=== PATIENT | female | born 1955 | race Caucasian/White ===

== ENCOUNTER 2016-09-07 16:46 | Inpatient (IN) | payer MEDICARE, OTHER ==
[2016-09-07] MEDS ORDERED: LORAZEPAM 2 MG/ML VIAL IV ONE ×3 (16:55→18:52)
--- NOTE | 2016-09-07 16:56 | EDPRACDOC ---
- General Information Stated Complaint: RESP Time Seen by Provider: 09/07/16 16:47 Information Source: Patient, [employer] Mode Of Arrival: Ambulance Home Medications: Home Medications Albuterol Sulfate 2.5 mg IH Q6H PRN 02/21/13 Albuterol Sulfate [Proair Hfa] 1 - 2 puff INH Q4H PRN 02/21/13 Aspirin (Enteric Coated) [Halfprin] 81 mg PO DAILY 02/21/13 Cyclobenzaprine HCl [Flexeril] 10 mg PO TID 02/21/13 Duloxetine HCl [Cymbalta] 60 mg PO DAILY 02/21/13 Fluticasone/Salmeterol [Advair 250-50 Diskus] 1 each IH BID 02/21/13 Levocetirizine Dihydrochloride [Xyzal] 5 mg PO DAILY 02/21/13 Metformin HCl [Glucophage] 1,000 mg PO BID 02/21/13 Montelukast Sodium [Singulair] 10 mg PO DAILY 02/21/13 Multivitamin [Multiple Vitamins] 1 tab PO DAILY 02/21/13 Pregabalin [Lyrica] 150 mg PO BID 02/21/13 Tiotropium [place] [Spiriva] 18 mcg IH DAILY 02/21/13 Fluconazole [Diflucan] 200 mg PO DAILY #7 tab 02/27/13 Insulin Glargine [Lantus Pen] 50 units SQ 0800,2000 #5 pen 02/27/13 Amlodipine [Norvasc] 5 mg PO DAILY 09/07/16 Atorvastatin Calcium [Lipitor] 20 mg PO DAILY 09/07/16 Cefdinir [Omnicef] 300 mg PO .BID X 10D 09/07/16 Furosemide [Lasix] 40 mg PO BID 09/07/16 Hydrocodone Bit/Acetaminophen [[place] 7.5-325 Tablet] 1 tab PO TID 09/07/16 Insulin Lispro [Humalog] 0 units SQ DIR 09/07/16 Levothyroxine [Synthroid, Levoxyl] 112 mcg PO DAILY 09/07/16 Morphine Sulfate 30 mg PO BID 09/07/16 Morphine Sulfate/Naltrexone [Embeda ER 20-0.8 mg Capsule] 1 cap PO BID 09/07/16 Nabumetone 750 mg PO DAILY 09/07/16 Naloxone HCl [Narcan] 4 mg NS DIR 09/07/16 [place]-3 Fatty Acids/Fish Oil [Fish Oil 1,000 mg Softgel] 1 cap PO BID 09/07/16 Potassium Chloride [Klor-Con M20] 20 meq PO DAILY 09/07/16 Allergies/Adverse Reactions: Allergies Allergy/AdvReac Type Severity Reaction Status Date / Time Penicillins Allergy Unknown Verified 09/07/16 16:49 aspirin AdvReac Mild See Verified 09/07/16 16:49 [From Aspirin Regimen Comments Rebecca/Calcium] calcium carbonate AdvReac Mild ITICHING Verified 09/07/16 16:49 [From Aspirin Regimen Rebecca/Calcium] ibuprofen [From Motrin] AdvReac ITICHING Verified 09/07/16 16:49 Sulfa (Sulfonamide AdvReac Itching Verified 09/07/16 16:49 Antibiotics) - History of Present Illness HPI: PT PRESENTS WITH SEVERE DYSPNEA PROGRESSIVE OVER THE LAST FEW DAYS. Relevant History: Reports: COPD ED Past Medical History - History Reviewed Yes Nurses notes reviewed and agree except as marked - Patient Medical History Cardiac History: Reports: Hypertension Respiratory History: Reports: COPD, Pneumonia () Psychological History: Reports: Depression, Anxiety (xanax) Systemic History: Denies: Cancer - Family Medical History Reports: Hypertension (mother and father, bro, sis), Diabetes (mother and father , bro, sis), Cancer (GM of lung CA) - Social Medical History Lives In: Home EDM Review of Systems - Review of Systems ROS Unobtainable: Yes Review of systems cannot be obtained due to the patient's medical condition Constitutional: Fatigue, Weakness Respiratory: Cough, Shortness of Breath, Wheezing - Physical Exam Constitutional: Alert, Distress Last recorded Vital Signs: Oxygen Pulse Oxygen Saturation O2 Device Oxygen Flow Rate Fraction of Inspired Oxygen ( FIO2) Exam: PT SEVERELY DYSPNEIC AND IN DISTRESS. FEW WORD DYSPNEA UPON ARRIVAL. - HEENT Head: negative: Deformity, Laceration Eye Exam: negative: Conjunctival Injection, Pale Conjunctiva Oropharynx: Membranes Dry (TACKY) Nose: negative: Congestion, Discharge Neck: negative: Limited ROM - Respiratory/Cardiovascular Respiratory: Accessory Muscle Use, Diminished, Tachypnea, Wheezes Cardiovascular: Tachycardia - Musculoskeletal Extremities: Pedal Edema (2+ BILATERAL), Pedal Pulse (PALPABLE) - Integumentary Skin: Warm - Neurologic Motor Function: Normal Mood Description: Anxious Thought: Coherent ED SOB MDM - Re-evaluation Re-evaluation 1 Re-evaluation Time: 20:46 Re-evaluation: PT HOLDING SATS WELL BUT REMAINS TACHYPNEIC. WILL OBTAIN SECOND ABG TO ASSESS NEED FOR INTUBATION. - Results Result Diagrams: 09/07/16 16:50 09/09/16 05:30 ED Critical Care Note - Critical Care Note Total Time (mins): 30 Comments: Due to the presence of and / or the risk of deterioration, my attendance to this patient required critical care time, including assessment/reassessment, documentation, ordering and interpreting ancillary studies, discussion with ED staff and consultants,patient and family, and excludes time spent on separately billable procedures. - Departure Yes I personally saw and evaluated the patient. Disposition: Admit IP To This Hospital Condition: Stable Final Diagnosis: Hypertensive urgency, COPD with exacerbation Altered mental status Qualifiers: Altered mental status type: unspecified Qualified Code(s): R41.82 - Altered mental status, unspecified Decision to Admit Time: 19:00 Decision to admit date: 09/09/16 Decision to admit: from ED
[2016-09-07] MEDS ORDERED: LABETALOL 20 MG/4 ML SYRINGE IV STA ×2 (16:59→19:47)
[2016-09-07] MEDS ORDERED: FUROSEMIDE 40 MG/4 ML VIAL IV ONE (17:02)
[2016-09-07 17:13] LABS: AUTOMATED BASOPHIL 0.6 % (0-2); AUTOMATED MONOCYTE 8.2 % (3-10); AUTOMATED NEUTROPHIL 80.2 % (45-76); MPV 8.4 fL (7.4-10.4)
[2016-09-07 17:21] LABS: ALLEN'S TEST PASS; BEb -5.2 (+/- 2); TCO2 21.1 MMOL/L (23-27)
[2016-09-07 17:22] LABS: ABG Draw Site Right Radial; ABG Draw Tech SI; MODE BIPAP 14/6 RATE
[2016-09-07 17:27] LABS: BLOOD UREA NITROGEN 20 MG/DL (7-17); CALCIUM 8.7 MG/DL (8.4-10.2); CALCULATED OSMOLALITY 292 MOs/Kg (270-290); CHLORIDE 108 mEq/L (98-107); GLUCOSE 245 MG/DL (70-99); SODIUM LEVEL 146 mEq/L (137-146); TOTAL PROTEIN 7.8 G/DL (6.3-8.2)
[2016-09-07 17:28] LABS: PARTIAL THROMB. TIME 27.4 SEC (22-35); PT-INR 1.1
[2016-09-07 17:59] LABS: CPK TOTAL WITH POSSIBLE MB 472 IU/L (30-134)
--- NOTE | 2016-09-07 18:02 | DIRPT ---
CLINICAL DATA: Dyspnea EXAM: PORTABLE CHEST 1 VIEW COMPARISON: None. FINDINGS: Moderate cardiomegaly. Normal vascularity. Lungs are grossly clear. No pneumothorax. IMPRESSION: Cardiomegaly without decompensation Electronically Signed By: Nick Clemente M.D. On: 09/07/2016 17:59
[2016-09-07 18:07] LABS: AMORPHOUS 1+; LEUKOCYTES/URINE NEG (NEGATIVE); NITRITE/URINE NEG (NEGATIVE); RBC/URINE 0-2 (0-5); URINE OCCULT BLOOD 2+ (NEG/TRACE); WBC/URINE 0-2 (0-5)
[2016-09-07] MEDS ORDERED: NITROGLYCERINE 2 % OINTMENT PACK TOP ONE (19:01)
[2016-09-07] MEDS ORDERED: ONDANSETRON HCL 4 MG/2 ML VIAL IV PRN (19:05)
[2016-09-07] MEDS ORDERED: OXYCODONE HCL 5 MG TABLET PO PRN (19:05)
[2016-09-07] MEDS ORDERED: ALBUTEROL 0.083% 3 ML NEB NEB PRN (19:06)
[2016-09-07] MEDS ORDERED: GLUCAGON 1 MG VIAL SQ PRN (19:06)
[2016-09-07] MEDS ORDERED: DEXTROSE 25 GM/50 ML PFS IV PRN (19:06)
[2016-09-07] MEDS ORDERED: GLUCOSE (ORAL GEL) 15 GM TUBE PO PRN (19:06)
[2016-09-07] MEDS ORDERED: METHYLPREDNISOLONE 125 MG/2 ML VIAL IV ONE (19:06)
--- NOTE | 2016-09-07 19:13 | HISTPHYS ---
- Chief Complaint Severe dyspnea - History of Present Illness This is a 61-year-old female who was on as needed oxygen at home for history of COPD, as well as multiple medications for hypertension and diabetes mellitus. She was brought in by family this evening, due to progressive dyspnea and altered mental status. Patient's and daughter are at the bedside, patient's tells me that she has been in her usual state of health, though he did notice that this morning she was a little bit more lethargic than usual. She normally uses oxygen as needed, but the family feels that she does not use it as often as she should. In any case, he also noted that while he normally leaves out her nighttime insulin dosages for her, he noticed this morning that she seems to not have taken her insulin last night. He went to work this morning about 8:00 a.m., and when their daughter came to see her about 2 o'clock, she was very short of breath, dyspneic and seem to be a little bit confused. She did not complain of any chest pain, fevers or chills or have a significantly worsened cough than usual. No diarrhea, nausea or vomiting. She was brought to the emergency department where she continued to have significant dyspnea and was placed on BiPAP, she currently is in some respiratory distress but apparently improved when she was given IV Ativan. She has also required several doses of IV labetalol to improve her hypertension. - Medical History Cardiac History: Reports: Hypertension Respiratory History: Reports: COPD, Pneumonia () Systemic History: Denies: Cancer Psychological History: Reports: Depression, Anxiety (xanax) - Medictions/Allergies Allergies Penicillins Allergy (Verified 09/07/16 16:49) Unknown aspirin [From Aspirin Regimen Rebecca/Calcium] Adverse Reaction (Mild, Verified 16:49) See Comments "the uncoated kind messes my stomach up" calcium carbonate [From Aspirin Regimen Rebecca/Calcium] Adverse Reaction (Mild, Verified 09/07/16 16:49) ITICHING CAN'T TAKE 325MG ibuprofen [From Motrin] Adverse Reaction (Verified 09/07/16 16:49) ITICHING Sulfa (Sulfonamide Antibiotics) Adverse Reaction (Verified 09/07/16 16:49) Itching Home Medications Albuterol Sulfate 2.5 mg IH Q6H PRN 02/21/13 Albuterol Sulfate [Proair Hfa] 1 - 2 puff INH Q4H PRN 02/21/13 Aspirin (Enteric Coated) [Halfprin] 81 mg PO DAILY 02/21/13 Cyclobenzaprine HCl [Flexeril] 10 mg PO TID 02/21/13 Duloxetine HCl [Cymbalta] 60 mg PO DAILY 02/21/13 Fluticasone/Salmeterol [Advair 250-50 Diskus] 1 each IH BID 02/21/13 Levocetirizine Dihydrochloride [Xyzal] 5 mg PO DAILY 02/21/13 Metformin HCl [Glucophage] 1,000 mg PO BID 02/21/13 Montelukast Sodium [Singulair] 10 mg PO DAILY 02/21/13 Multivitamin [Multiple Vitamins] 1 tab PO DAILY 02/21/13 Pregabalin [Lyrica] 150 mg PO BID 02/21/13 Tiotropium [place] [Spiriva] 18 mcg IH DAILY 02/21/13 Fluconazole [Diflucan] 200 mg PO DAILY #7 tab 02/27/13 Insulin Glargine [Lantus Pen] 50 units SQ 0800,2000 #5 pen 02/27/13 Amlodipine [Norvasc] 5 mg PO DAILY 09/07/16 Atorvastatin Calcium [Lipitor] 20 mg PO DAILY 09/07/16 Cefdinir [Omnicef] 300 mg PO .BID X 10D 09/07/16 Furosemide [Lasix] 40 mg PO BID 09/07/16 Hydrocodone Bit/Acetaminophen [[place] 7.5-325 Tablet] 1 tab PO TID 09/07/16 Insulin Lispro [Humalog] 0 units SQ DIR 09/07/16 Levothyroxine [Synthroid, Levoxyl] 112 mcg PO DAILY 09/07/16 Morphine Sulfate 30 mg PO BID 09/07/16 Morphine Sulfate/Naltrexone [[place]eda ER 20-0.8 mg Capsule] 1 cap PO BID 09/07/16 Nabumetone 750 mg PO DAILY 09/07/16 Naloxone HCl [Narcan] 4 mg NS DIR 09/07/16 [place]-3 Fatty Acids/Fish Oil [Fish Oil 1,000 mg Softgel] 1 cap PO BID 09/07/16 Potassium Chloride [Klor-Con M20] 20 meq PO DAILY 09/07/16 - Family History Reports: Hypertension (mother and father, bro, sis), Diabetes (mother and father , bro, sis), Cancer (GM of lung CA) - Social History Travel Outside of [place] in the Last 3 Months?: No - Review of Systems Yes All systems reviewed and were negative except as marked (And as mentioned in the history of present illness above.) Yes Review of systems cannot be obtained due to the patient's medical condition (Given by patient's and daughter at the bedside.) - Physical Exam Vital Signs: Initial Vitals Pulse Rate 135 H 09/07/16 16:49 Respiratory Rate 52 H 09/07/16 16:49 Pulse Oxygen Saturation 95 09/07/16 16:49 Constitutional: Distress Oriented to: Person, Not Oriented Exam: Obese female appearing her stated age in obvious respiratory distress. Keeps repeating okay. - HEENT Head: Normal (normocephalic,atraumatic, trachea midline) Eye: Normal (EOMI, Sclera white) Oropharynx: Normal (moist) Nose: No Symptoms Reported (without discharge or bleeding) Respiratory: Accessory Muscle Use, Diminished, Rales, Retractions, Rhonchi, Tachypnea, Wheezes, Excursion Cardiovascular: Tachycardia - GI Palpation: Normal (soft, non distended and nontender) - Musculoskeletal Extremities: Normal (normal tone, no cyanosis or edema) - Integumentary Skin: Normal (no rashes or lesions) - Neurologic Cranial Nerve: Normal (CN II-XII intact) Mood Description: Normal (Fully oriented and appropiate affect) - Focused CV Perfusion Exam Vital Signs: Last Vital Signs Temp Pulse 95 09/07/16 18:53 Resp 26 H 09/07/16 18:53 BP 185/82 H 09/07/16 18:53 Pulse Ox 95 09/07/16 18:53 - Lab Results Laboratory Tests 09/07/16 09/07/16 09/07/16 16:50 16:50 16:50 WBC 10.5 Hgb 16.0 Plt Count 242 INR 1.1 pH pCO2 pO2 Potassium 4.1 Chloride 108 H BUN 20 H Creatinine 0.90 Lactic Acid AST 103 H ALT 57 H Alkaline Phosphatase 164 09/07/16 09/07/16 16:50 17:18 WBC Hgb Plt Count INR pH 7.340 L pCO2 37.0 pO2 97.0 Potassium Chloride BUN Creatinine Lactic Acid 1.8 AST ALT Alkaline Phosphatase - Diagnostic Findings Chest x-ray: Moderate cardiomegaly. Normal vascularity. Lungs are grossly clear. No pneumothorax. - Assessment (1) Hypertensive urgency I16.0 - HYPERTENSIVE URGENCY Acute With systolic blood pressure rising to the 180s, associated with altered mental status and shortness of breath. I am concerned that she could be converting into flash pulmonary edema, though her chest x-ray is unremarkable for this. She has received several doses of IV labetalol, it seems from the family's history that she may have not taken her medications in the last 24 hours and this may explain her significant hypertension. As such, will resume her home antihypertensive medications. Given the combined shortness of breath with her hypertension, will also start a 0.5 inch of nitropaste. (2) Altered mental status R41.82 - ALTERED MENTAL STATUS, UNSPECIFIED Acute Unclear etiology, blood gas was obtained appropriately, CO2 is not elevated. Altered mental status may be related to her hypertensive urgency. Would obtain CT of the head once her respiratory status is improved, if her mental status is not improved. (3) DMII (diabetes mellitus, type 2) E11.9 - TYPE 2 DIABETES MELLITUS WITHOUT COMPLICATIONS Acute She is on metformin as well as scheduled insulin at home. Check hemoglobin A1c, and add sliding scale insulin q.a.c. and HS. Will also check urine microalbumin and give her diabetic diet when eating. Diabetic teaching has been ordered Q shift. (4) COPD with exacerbation J44.1 - CHRONIC OBSTRUCTIVE PULMONARY DISEASE W (ACUTE) EXACERBATION Acute Hypoxia, tachypnea, wheezing and rhonchi. Chest x-ray is unremarkable. Will treat COPD exacerbation with scheduled IV steroid taper, as well as empiric IV antibiotics Rocephin and azithromycin. Will also add scheduled bronchodilators and anticholinergics, as well as p.r.n. albuterol. Respiratory therapy has been consulted. Due to her significant tachypnea, I am concerned that she may need to be intubated, however her other respiratory markers are not significantly concerning. There certainly could be a component of anxiety, so will be treating this initially. Discussed with nursing staff that they will follow up with me if her tachypnea does not improve. (5) Hypothyroidism E03.9 - HYPOTHYROIDISM, UNSPECIFIED Acute Continue home Synthroid, check tsh. - Plan In summary this patient is acutely and critically ill. The patient requires treatment of vital organ failure and measures to prevent further life- threatening deterioration especially due to her altered mental status and significant tachypnea with retractions, accessary muscle use. I have explained to her family at the bedside that I am concerned about her respiratory status, and that she may need to be intubated this evening. I personally reviewed and ordered lab testing, as well as imaging. I reviewed old medical records from previous hospitalizations as available, and spent the time mentioned below in critical care of this patient including counseling and coordination of care. Total Time: 96
[2016-09-07] MEDS ORDERED: GLARGINE INSULIN (LANTUS) 100 UNITS/ML PEN SQ SCH (20:00)
[2016-09-07] MEDS: CEFTRIAXONE 1 GM in D5W 100 ML IV SCH (20:09)
[2016-09-07 20:54] LABS: ALLEN'S TEST PASS; BEb -2.2 (+/- 2); TCO2 25.1 MMOL/L (23-27)
[2016-09-07 20:55] LABS: ABG Draw Site Left Radial; MODE BIPAP 14/6 RATE
[2016-09-07] MEDS ORDERED: Non-Formulary Medication ITEM (Pregabalin [Lyrica] 150 MG) PO SCH (21:00)
[2016-09-07] MEDS: Albuterol/Ipratropium Neb 3 ML NEB NEB SCH (21:04)
[2016-09-07] MEDS: AZITHROMYCIN 500 MG in D5W 250 ML IV SCH (21:43)
[2016-09-07] MEDS: ENOXAPARIN 40 MG/0.4 ML PFS SQ SCH (21:43)
[2016-09-07] MEDS: GLARGINE INSULIN (LANTUS) 100 UNITS/ML PEN SQ SCH (21:44)
[2016-09-07] MEDS: REGULAR INSULIN 100 UNITS/ML - 3 ML VIAL SQ SCH (21:50)
[2016-09-07] MEDS: CYCLOBENZAPRINE 10 MG TAB PO SCH (21:51)
[2016-09-07] MEDS ORDERED: NS 1,000 ML IV ONE (22:53)
[2016-09-07] MEDS: MORPHINE 30 MG IMMED REL TAB PO SCH (23:02)
[2016-09-07] MEDS: PREGABALIN 50 MG CAP PO SCH (23:02)
[2016-09-07] MEDS ORDERED: IBUPROFEN INTRAVENOUS 800 MG in NS 250 ML IV PRN (23:58)
[2016-09-07] MEDS ORDERED: DIPHENHYDRAMINE 50 MG/ML VIAL IV PRN (23:58)
[2016-09-08] MEDS: 1/2NS 1,000 ML IV SCH ×2 (00:35→20:41)
[2016-09-08] MEDS ORDERED: Vaccine Screening Complete SCH (01:00)
[2016-09-08] MEDS: Albuterol/Ipratropium Neb 3 ML NEB NEB SCH ×4 (02:46→20:20)
[2016-09-08] MEDS: METHYLPREDNISOLONE 125 MG/2 ML VIAL IV SCH ×4 (02:53→20:47)
[2016-09-08 05:14] LABS: ALLEN'S TEST PASS; BEb -3.2 (+/- 2)
[2016-09-08 05:26] LABS: ABG Draw Site Right Radial; BI-PAP 14/6 cm H2O
[2016-09-08] MEDS: CYCLOBENZAPRINE 10 MG TAB PO SCH ×3 (05:41→20:47)
[2016-09-08] MEDS: MetFORMIN 1000 MG IMMED REL TAB PO SCH ×2 (05:42→17:19)
[2016-09-08] MEDS: LEVOTHYROXINE 112 MCG (0.112 MG) TAB PO SCH (05:42)
[2016-09-08] MEDS: REGULAR INSULIN 100 UNITS/ML - 3 ML VIAL SQ SCH ×4 (05:49→20:48)
[2016-09-08 06:30] LABS: CALC CORRECTED 9.1 MG/DL (8.4-10.2); CALCIUM 8.3 MG/DL (8.4-10.2); CREATININE 1.3 MG/DL (0.52-1.04); TOTAL PROTEIN 6.2 G/DL (6.3-8.2)
[2016-09-08] MEDS: NABUMETONE 500 MG TAB PO SCH (07:37)
[2016-09-08] MEDS: DULOXETINE 60 MG CAPSULE PO SCH (07:37)
[2016-09-08] MEDS: ATORVASTATIN 20 MG TAB PO SCH (07:38)
[2016-09-08] MEDS: MORPHINE 30 MG IMMED REL TAB PO SCH ×2 (07:38→20:54)
[2016-09-08] MEDS: PREGABALIN 50 MG CAP PO SCH ×2 (07:38→20:50)
[2016-09-08] MEDS: AMLODIPINE 5 MG TAB PO SCH (07:38)
[2016-09-08] MEDS: POTASSIUM CHLORIDE 20 MEQ TAB PO SCH (07:38)
[2016-09-08] MEDS: CETIRIZINE HCL 10 MG TAB PO SCH (07:39)
[2016-09-08] MEDS: MONTELUKAST SODIUM 10 MG TAB PO SCH (07:39)
--- NOTE | 2016-09-08 08:28 | GENMEDPROG ---
Chief Complaint: Still very short of breath wearing BiPAP Notes Reviewed: Yes Events from last night noted and discussed with Clinical Staff Current Medication List: Reviewed DVT Prophylaxis: Yes - Physical Examination Vital Signs and I&O: Last Vital Signs Temp 99.0 F 09/08/16 07:00 Pulse 85 09/08/16 08:00 Resp 28 H 09/08/16 07:00 BP 120/60 09/08/16 08:00 Pulse Ox 96 09/08/16 08:00 Oxygen Pulse Oxygen Saturation 96 O2 Device BiPAP Oxygen Flow Rate Fraction of Inspired Oxygen ( 45 FIO2) Intake & Output 09/05/16 09/06/16 09/07/16 09/08/16 23:59 23:59 23:59 23:59 Intake Total 350 733 Output Total 1200 Balance -850 733 Patient's weight 74.797 kg General: Alert, Oriented x3, No acute distress, Well appearing, Well nourished HEENT: Normal (Normocephalic, atraumatic;EOMI.Sclera white, Nares patent, without discharge or bleeding. No oropharyngeal lesions or erythema. Mucous membranes are dry.) Neck: Non-tender, Normal Trachea alignment, Normal inspection (No cervical lymphadenopathy. No supraclavicular lymphadenopathy.), No Masses palpable, Limited range of motion, Supple Lymphatics: Normal (No lymph node swelling or pain.) Respiratory: Accessory Muscle Use, Diminished, Tachypnea, Wheezes Cardiovascular: Regular rate and rhythm (No bradycardia or tachycardia), Normal S1, No Gallops,Rubs/Murmurs, Normal S2, Good Pedal Pulses (DP pulses 2+ bilaterally) GI: Normal bowel sounds (normal active sounds), Soft (non-distended), Non tender , No hepatospenomegaly, No masses Extremities/Musculoskeletal: Normal pulses (DP pulses 2+ bilaterally) Skin: Warm,Dry and Intact, No rashes, No significant lesion Neurological: Strength at 5/5 X4 ext (Motor 5/5 throughout.), Normal tone, Cranial nerves 3-12 NL ( 2-12 grossly intact.) Psych/Mental Status: Appropriate, Normal Affect Lab/DI/Studies Reviewed: 09/07/16 16:50 09/08/16 05:30 Laboratory Results - last 24 hr 09/07/16 09/07/16 09/07/16 16:50 16:50 16:50 WBC 10.5 RBC 5.91 H Hgb 16.0 Hct 48.7 H MCV 82 MCH 27.1 MCHC 32.8 L RDW 17.6 H Plt Count 242 MPV 8.4 Neut % (Auto) 80.2 H Lymph % (Auto) 11.0 L [place] % (Auto) 8.2 Eos % (Auto) 0.0 Baso % (Auto) 0.6 Absolute Neuts (auto) 8.40 H Absolute Lymphs (auto) 1.16 PT 11.1 INR 1.1 APTT 27.4 Puncture Site pH pCO2 pO2 HCO3 Total CO2 Base Excess Vent Mode FiO2 % Mode BiPAP Specimen Drawn By Sodium 146 Potassium 4.1 Chloride 108 H Carbon Dioxide 21 L Anion Gap 21 H BUN 20 H Creatinine 0.90 Estimated GFR (MDRD) > 60 Glucose 245 H POC Capillary Glucose Hemoglobin A1c Calculated Osmolality 292 H Lactic Acid Calcium 8.7 Corrected Calcium Total Bilirubin 0.6 AST 103 H ALT 57 H Alkaline Phosphatase 164 Creatine Kinase 472 H CK-MB (CK-2) 3.0 Troponin I 0.16 [id number]-R-Oqxovziuhcs Pept 2790 H Total Protein 7.8 Albumin 4.0 Urine Color Urine Clarity Urine pH Ur Specific [place] Urine Protein Urine Glucose (UA) Urine Ketones Urine Occult Blood Urine Nitrite Urine Bilirubin Urine Urobilinogen Ur Leukocyte Esterase Urine RBC Urine WBC Ur Epithelial Cells Amorphous Sediment Urine Bacteria 09/07/16 09/07/16 09/07/16 16:50 16:50 17:18 WBC RBC Hgb Hct MCV MCH MCHC RDW Plt Count MPV Neut % (Auto) Lymph % (Auto) [place] % (Auto) Eos % (Auto) Baso % (Auto) Absolute Neuts (auto) Absolute Lymphs (auto) PT INR APTT Puncture Site Right radial pH 7.340 L pCO2 37.0 pO2 97.0 HCO3 20.0 L Total CO2 21.1 L Base Excess -5.2 L Vent Mode Bipap 14/6 FiO2 % 45% Mode BiPAP Specimen Drawn By Si Sodium Potassium Chloride Carbon Dioxide Anion Gap BUN Creatinine Estimated GFR (MDRD) Glucose POC Capillary Glucose Hemoglobin A1c 10.4 H Calculated Osmolality Lactic Acid 1.8 Calcium Corrected Calcium Total Bilirubin AST ALT Alkaline Phosphatase Creatine Kinase CK-MB (CK-2) Troponin I [id number] Pept Total Protein Albumin Urine Color Urine Clarity Urine pH Ur Specific [place] Urine Protein Urine Glucose (UA) Urine Ketones Urine Occult Blood Urine Nitrite Urine Bilirubin Urine Urobilinogen Ur Leukocyte Esterase Urine RBC Urine WBC Ur Epithelial Cells Amorphous Sediment Urine Bacteria 09/07/16 09/07/16 09/07/16 17:34 20:26 20:45 WBC RBC Hgb Hct MCV MCH MCHC RDW Plt Count MPV Neut % (Auto) Lymph % (Auto) [place] % (Auto) Eos % (Auto) Baso % (Auto) Absolute Neuts (auto) Absolute Lymphs (auto) PT INR APTT Puncture Site Left radial pH 7.340 L pCO2 44.0 pO2 81.0 HCO3 23.7 Total CO2 25.1 Base Excess -2.2 L Vent Mode Bipap 14/6 FiO2 % 45% Mode BiPAP Specimen Drawn By Stana Sodium Potassium Chloride Carbon Dioxide Anion Gap BUN Creatinine Estimated GFR (MDRD) Glucose POC Capillary Glucose Hemoglobin A1c Calculated Osmolality Lactic Acid Calcium Corrected Calcium Total Bilirubin AST ALT Alkaline Phosphatase Creatine Kinase CK-MB (CK-2) Troponin I 0.17 Qhr-I-Rqdjnkrnouj Pept Total Protein Albumin Urine Color Yellow Urine Clarity Cldy Urine pH 6.0 Ur Specific [place] 1.010 Urine Protein 2+ H Urine Glucose (UA) 3+ H Urine Ketones 1+ H Urine Occult Blood 2+ H Urine Nitrite Neg Urine Bilirubin Neg Urine Urobilinogen <2.0 Ur Leukocyte Esterase Neg Urine RBC 0-2 Urine WBC 0-2 Ur Epithelial Cells Occ Amorphous Sediment 1+ Urine Bacteria Few 09/07/16 09/07/16 09/08/16 21:46 23:20 05:05 WBC RBC Hgb Hct MCV MCH MCHC RDW Plt Count MPV Neut % (Auto) Lymph % (Auto) [place] % (Auto) Eos % (Auto) Baso % (Auto) Absolute Neuts (auto) Absolute Lymphs (auto) PT INR APTT Puncture Site Right radial pH 7.330 L pCO2 43.0 pO2 91.0 HCO3 22.7 Total CO2 24.0 Base Excess -3.2 L Vent Mode FiO2 % 45 Mode BiPAP 14/6 Specimen Drawn By Stana Sodium Potassium Chloride Carbon Dioxide Anion Gap BUN Creatinine Estimated GFR (MDRD) Glucose POC Capillary Glucose 255 H Hemoglobin A1c Calculated Osmolality Lactic Acid Calcium Corrected Calcium Total Bilirubin AST ALT Alkaline Phosphatase Creatine Kinase CK-MB (CK-2) Troponin I 0.15 [id number]-Cqtjnihnoap Pept Total Protein Albumin Urine Color Urine Clarity Urine pH Ur Specific [place] Urine Protein Urine Glucose (UA) Urine Ketones Urine Occult Blood Urine Nitrite Urine Bilirubin Urine Urobilinogen Ur Leukocyte Esterase Urine RBC Urine WBC Ur Epithelial Cells Amorphous Sediment Urine Bacteria 09/08/16 09/08/16 05:30 05:46 WBC RBC Hgb Hct MCV MCH MCHC RDW Plt Count MPV Neut % (Auto) Lymph % (Auto) [place] % (Auto) Eos % (Auto) Baso % (Auto) Absolute Neuts (auto) Absolute Lymphs (auto) PT INR APTT Puncture Site pH pCO2 pO2 HCO3 Total CO2 Base Excess Vent Mode FiO2 % Mode BiPAP Specimen Drawn By Sodium 145 Potassium 4.3 Chloride 108 H Carbon Dioxide 23 Anion Gap 18 H BUN 37 H Creatinine 1.30 H Estimated GFR (MDRD) 41 L Glucose 341 H POC Capillary Glucose 339 H Hemoglobin A1c Calculated Osmolality 301 H Lactic Acid Calcium 8.3 L Corrected Calcium 9.1 Total Bilirubin 0.5 AST 99 H ALT 62 H Alkaline Phosphatase 127 Creatine Kinase CK-MB (CK-2) Troponin I Euw-A-Wjwqlvrxpaj Pept Total Protein 6.2 L Albumin 3.2 L Urine Color Urine Clarity Urine pH Ur Specific [place] Urine Protein Urine Glucose (UA) Urine Ketones Urine Occult Blood Urine Nitrite Urine Bilirubin Urine Urobilinogen Ur Leukocyte Esterase Urine RBC Urine WBC Ur Epithelial Cells Amorphous Sediment Urine Bacteria - Assessment (1) Respiratory failure with hypercapnia Acute J96.92 - RESPIRATORY FAILURE, UNSPECIFIED WITH HYPERCAPNIA Qualifiers: Chronicity: acute on chronic Qualified Code(s): J96.22 - Acute and chronic respiratory failure with hypercapnia Comment/Plan: Requiring continues BiPAP for acute respiratory failure. (2) COPD with exacerbation Acute J44.1 - CHRONIC OBSTRUCTIVE PULMONARY DISEASE W (ACUTE) EXACERBATION Comment/Plan: Hypoxia, tachypnea, wheezing and rhonchi. Chest x-ray is unremarkable. Will treat COPD exacerbation with scheduled IV steroid taper, as well as empiric IV antibiotics Rocephin and azithromycin. Patient is also getting scheduled bronchodilators and anticholinergics, as well as p.r.n. albuterol. Respiratory therapy has been consulted. Due to her significant tachypnea, I am concerned that she may need to be intubated, however her other respiratory markers are not significantly concerning. There certainly could be a component of anxiety, so will be treating this initially. Discussed with nursing staff that they will follow up with me if her tachypnea does not improve. (3) DMII (diabetes mellitus, type 2) Chronic E11.9 - TYPE 2 DIABETES MELLITUS WITHOUT COMPLICATIONS Qualifiers: Diabetes mellitus complication status: with kidney complications Diabetes mellitus complication detail: with chronic kidney disease Diabetes mellitus group home insulin use: with group home use Chronic kidney disease stage: stage 1 Qualified Code(s): E11.22 - Type 2 diabetes mellitus with diabetic chronic kidney disease; N18.1 - Chronic kidney disease, stage 1; Z79.4 - FDC ( current) use of insulin Comment/Plan: She is on metformin as well as scheduled insulin at home. Hemoglobin A1c shows poor control the level 10.4. She is on sliding scale insulin q.a.c. and HS. urine microalbumin pending and will be given her diabetic diet when eating. Diabetic teaching has been ordered Q shift. (4) Hypothyroidism Chronic E03.9 - HYPOTHYROIDISM, UNSPECIFIED Qualifiers: Hypothyroidism type: acquired Qualified Code(s): E03.9 - Hypothyroidism, unspecified Comment/Plan: Continue home Synthroid, check tsh. Additional Notes: Due to the presence of and / or the risk of deterioration, my attendance to this patient required critical care time, including assessment/reassessment, documentation, ordering and interpreting ancillary studies, discussion with staff and consultants,patient and family, and excludes time spent on separately billable procedures. This individual is critically ill and in danger of dying. Case Care Discussed with: Patient, Nursing Staff, Resource Management Education/Counseling Given To: Patient Education/Counseling Given Regarding: Diagnosis, Treatment Total Time: 41 min Critical Care: Yes Code: 291
[2016-09-08] MEDS: GLARGINE INSULIN (LANTUS) 100 UNITS/ML PEN SQ SCH ×2 (08:52→20:44)
[2016-09-08] MEDS ORDERED: FLUCONAZOLE 100 MG TAB PO SCH (09:00)
[2016-09-08] MEDS ORDERED: METOPROLOL TARTRATE 25 MG TAB PO SCH (09:00)
[2016-09-08] MEDS ORDERED: LEVOCETIRIZINE DIHYDROCHLORIDE 5 MG PO SCH (09:00)
[2016-09-08] MEDS ORDERED: NABUMETONE 750 MG PO SCH (09:00)
[2016-09-08] MEDS ORDERED: Non-Formulary Medication ITEM (Tiotropium Bromide [Spiriva] 18 MCG) IH SCH (09:00)
[2016-09-08] MEDS: PROBIOTIC BLEND TAB PO SCH ×2 (10:49→17:19)
[2016-09-08] MEDS: VITAMINS, MULTIPLE CAP PO SCH (10:50)
[2016-09-08] MEDS: METOPROLOL 5 MG/5 ML SDV IV SCH ×2 (11:05→17:18)
[2016-09-08] MEDS ORDERED: MORPHINE 2 MG/ML INJECTION IV PRN (12:29)
[2016-09-08] MEDS: ENOXAPARIN 40 MG/0.4 ML PFS SQ SCH (17:18)
[2016-09-08] MEDS: CEFTRIAXONE 1 GM in D5W 100 ML IV SCH (20:42)
[2016-09-08] MEDS: AZITHROMYCIN 500 MG in D5W 250 ML IV SCH (20:43)
[2016-09-08] MEDS: CHLORHEXIDINE (HIBICLENS) 4 OZ BOTTLE TOP SCH (20:58)
[2016-09-09] MEDS: 1/2NS 1,000 ML IV SCH ×2 (00:43→19:03)
[2016-09-09] MEDS: METOPROLOL 5 MG/5 ML SDV IV SCH ×4 (00:43→17:02)
[2016-09-09] MEDS: METHYLPREDNISOLONE 125 MG/2 ML VIAL IV SCH ×4 (01:40→20:13)
[2016-09-09] MEDS: Albuterol/Ipratropium Neb 3 ML NEB NEB SCH ×4 (02:28→19:09)
[2016-09-09] MEDS: LEVOTHYROXINE 112 MCG (0.112 MG) TAB PO SCH (05:34)
[2016-09-09] MEDS: CYCLOBENZAPRINE 10 MG TAB PO SCH ×3 (05:34→20:17)
[2016-09-09] MEDS: MetFORMIN 1000 MG IMMED REL TAB PO SCH ×2 (05:35→17:05)
[2016-09-09] MEDS: REGULAR INSULIN 100 UNITS/ML - 3 ML VIAL SQ SCH ×4 (05:35→20:19)
[2016-09-09 06:27] LABS: BLOOD UREA NITROGEN 50 MG/DL (7-17); CALC CORRECTED 9.5 MG/DL (8.4-10.2); CALCIUM 8.2 MG/DL (8.4-10.2); CALCULATED OSMOLALITY 292 MOs/Kg (270-290); CHLORIDE 106 mEq/L (98-107); GLUCOSE 276 MG/DL (70-99); SODIUM LEVEL 140 mEq/L (137-146); TOTAL PROTEIN 5.4 G/DL (6.3-8.2)
--- NOTE | 2016-09-09 07:47 | GENMEDPROG ---
Notes Reviewed: Yes Events from last night noted and discussed with Clinical Staff Current Medication List: Reviewed DVT Prophylaxis: Yes - Physical Examination Vital Signs and I&O: Last Vital Signs Temp 97.8 F 09/09/16 07:00 Pulse 81 09/09/16 07:00 Resp 28 H 09/09/16 07:00 BP 107/54 L 09/09/16 07:00 Pulse Ox 95 09/09/16 07:00 Oxygen Pulse Oxygen Saturation 95 O2 Device BiPAP Oxygen Flow Rate 4 Fraction of Inspired Oxygen ( 40 FIO2) Intake & Output 09/06/16 09/07/16 09/08/16 09/09/16 23:59 23:59 23:59 23:59 Intake Total 350 1249 868 Output Total 1200 875 275 Balance -850 374 593 Patient's weight 74.797 kg 74.979 kg General: Alert, Oriented x3, No acute distress, Well appearing, Well nourished HEENT: Normal (Normocephalic, atraumatic;EOMI.Sclera white, Nares patent, without discharge or bleeding. No oropharyngeal lesions or erythema. Mucous membranes are dry.) Neck: Non-tender, Normal Trachea alignment, Normal inspection (No cervical lymphadenopathy. No supraclavicular lymphadenopathy.), No Masses palpable, Limited range of motion, Supple Lymphatics: Normal (No lymph node swelling or pain.) Respiratory: Accessory Muscle Use, Diminished, Tachypnea, Wheezes Cardiovascular: Regular rate and rhythm (No bradycardia or tachycardia), Normal S1, No Gallops,Rubs/Murmurs, Normal S2, Good Pedal Pulses (DP pulses 2+ bilaterally) GI: Normal bowel sounds (normal active sounds), Soft (non-distended), Non tender , No hepatospenomegaly, No masses Extremities/Musculoskeletal: Normal pulses (DP pulses 2+ bilaterally) Skin: Warm,Dry and Intact, No rashes, No significant lesion Neurological: Strength at 5/5 X4 ext (Motor 5/5 throughout.), Normal tone, Cranial nerves 3-12 NL ( 2-12 grossly intact.) Psych/Mental Status: Appropriate, Normal Affect Lab/DI/Studies Reviewed: 09/07/16 16:50 09/09/16 05:30 Laboratory Results - last 24 hr 09/08/16 09/08/16 09/08/16 10:30 16:45 20:42 Sodium Potassium Chloride Carbon Dioxide Anion Gap BUN Creatinine Estimated GFR (MDRD) Glucose POC Capillary Glucose 279 H 274 H 275 H Calculated Osmolality Calcium Corrected Calcium Total Bilirubin AST ALT Alkaline Phosphatase Total Protein Albumin 09/09/16 09/09/16 05:27 05:30 Sodium 140 Potassium 4.1 Chloride 106 Carbon Dioxide 24 Anion Gap 14 BUN 50 H Creatinine 1.30 H Estimated GFR (MDRD) 41 L Glucose 276 H POC Capillary Glucose 264 H Calculated Osmolality 292 H Calcium 8.2 L Corrected Calcium 9.5 Total Bilirubin 0.3 AST 64 H ALT 75 H Alkaline Phosphatase 110 Total Protein 5.4 L Albumin 2.7 L - Assessment (1) Respiratory failure with hypercapnia Acute J96.92 - RESPIRATORY FAILURE, UNSPECIFIED WITH HYPERCAPNIA Qualifiers: Chronicity: acute on chronic Qualified Code(s): J96.22 - Acute and chronic respiratory failure with hypercapnia Comment/Plan: Requiring intermittent BiPAP for acute respiratory failure. Still tachypneic this morning. (2) COPD with exacerbation Acute J44.1 - CHRONIC OBSTRUCTIVE PULMONARY DISEASE W (ACUTE) EXACERBATION Comment/Plan: IV Solu-Medrol Rocephin Zithromax nebulizer therapy and intermittent BiPAP. 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 Hemoglobin A1c shows poor control the level 10.4. She is on sliding scale insulin q.a.c. and HS. urine microalbumin pending and will be given her diabetic diet when eating. Diabetic teaching has been ordered Q shift. (4) Hypothyroidism Chronic E03.9 - HYPOTHYROIDISM, UNSPECIFIED Qualifiers: Hypothyroidism type: acquired Qualified Code(s): E03.9 - Hypothyroidism, unspecified Comment/Plan: Continue home Synthroid, check tsh. Case Care Discussed with: Patient, Nursing Staff, Resource Management Education/Counseling Given To: Patient Education/Counseling Given Regarding: Diagnosis, Treatment Total Time: 38 minutes Critical Care: No Code: 16592 (12+)
[2016-09-09] MEDS ORDERED: FLU VACCINE (Afluria) 0.5 ML DOSE IM ONE (08:00)
[2016-09-09] MEDS: GLARGINE INSULIN (LANTUS) 100 UNITS/ML PEN SQ SCH ×2 (08:34→20:09)
[2016-09-09] MEDS: NABUMETONE 500 MG TAB PO SCH (08:36)
[2016-09-09] MEDS: ATORVASTATIN 20 MG TAB PO SCH (08:37)
[2016-09-09] MEDS: PREGABALIN 50 MG CAP PO SCH ×2 (08:38→20:23)
[2016-09-09] MEDS: POTASSIUM CHLORIDE 20 MEQ TAB PO SCH (08:38)
[2016-09-09] MEDS: DULOXETINE 60 MG CAPSULE PO SCH (08:38)
[2016-09-09] MEDS: MONTELUKAST SODIUM 10 MG TAB PO SCH (08:39)
[2016-09-09] MEDS: MORPHINE 30 MG IMMED REL TAB PO SCH ×2 (08:39→22:05)
[2016-09-09] MEDS: CETIRIZINE HCL 10 MG TAB PO SCH (08:39)
[2016-09-09] MEDS: AMLODIPINE 5 MG TAB PO SCH (08:39)
[2016-09-09] MEDS: VITAMINS, MULTIPLE CAP PO SCH (12:31)
[2016-09-09] MEDS: PROBIOTIC BLEND TAB PO SCH ×2 (12:31→17:05)
[2016-09-09] MEDS: REGULAR INSULIN 100 UNITS/ML - 3 ML VIAL IV PRN ×8 (14:47→23:27)
[2016-09-09] MEDS: ENOXAPARIN 40 MG/0.4 ML PFS SQ SCH (17:06)
[2016-09-09] MEDS: CEFTRIAXONE 1 GM in D5W 100 ML IV SCH (20:16)
[2016-09-09] MEDS: AZITHROMYCIN 500 MG in D5W 250 ML IV SCH (20:18)
[2016-09-09] MEDS: CHLORHEXIDINE (HIBICLENS) 4 OZ BOTTLE TOP SCH (20:19)
[2016-09-10] MEDS: METOPROLOL 5 MG/5 ML SDV IV SCH ×2 (01:28→05:40)
[2016-09-10] MEDS: 1/2NS 1,000 ML IV SCH ×3 (01:28→23:23)
[2016-09-10] MEDS: METHYLPREDNISOLONE 125 MG/2 ML VIAL IV SCH ×2 (01:31→07:46)
[2016-09-10] MEDS: Albuterol/Ipratropium Neb 3 ML NEB NEB SCH ×4 (01:50→19:47)
[2016-09-10] MEDS: REGULAR INSULIN 100 UNITS/ML - 3 ML VIAL IV PRN ×2 (02:55→06:09)
[2016-09-10] MEDS: CYCLOBENZAPRINE 10 MG TAB PO SCH ×3 (05:40→21:35)
[2016-09-10] MEDS: LEVOTHYROXINE 112 MCG (0.112 MG) TAB PO SCH (05:41)
[2016-09-10] MEDS: MetFORMIN 1000 MG IMMED REL TAB PO SCH ×2 (05:42→17:37)
[2016-09-10] MEDS: REGULAR INSULIN 100 UNITS/ML - 3 ML VIAL SQ SCH ×4 (06:10→21:23)
[2016-09-10 06:12] LABS: BLOOD UREA NITROGEN 52 MG/DL (7-17); CALC CORRECTED 9.6 MG/DL (8.4-10.2); CALCIUM 8.4 MG/DL (8.4-10.2); CALCULATED OSMOLALITY 277 MOs/Kg (270-290); CHLORIDE 99 mEq/L (98-107); GLUCOSE 243 MG/DL (70-99); SODIUM LEVEL 132 mEq/L (137-146); TOTAL PROTEIN 5.5 G/DL (6.3-8.2)
[2016-09-10 06:24] LABS: MPV 8.5 fL (7.4-10.4)
[2016-09-10 07:37] LABS: SEG NEUTROPHIL 88 % (45-76)
[2016-09-10] MEDS: PREGABALIN 50 MG CAP PO SCH ×2 (07:42→21:35)
[2016-09-10] MEDS: MORPHINE 30 MG IMMED REL TAB PO SCH ×2 (07:43→21:35)
[2016-09-10] MEDS: POTASSIUM CHLORIDE 20 MEQ TAB PO SCH (07:43)
[2016-09-10] MEDS: NABUMETONE 500 MG TAB PO SCH (07:44)
[2016-09-10] MEDS: DULOXETINE 60 MG CAPSULE PO SCH (07:44)
[2016-09-10] MEDS: MONTELUKAST SODIUM 10 MG TAB PO SCH (07:45)
[2016-09-10] MEDS: AMLODIPINE 5 MG TAB PO SCH (07:45)
[2016-09-10] MEDS: CETIRIZINE HCL 10 MG TAB PO SCH (07:45)
[2016-09-10] MEDS: ATORVASTATIN 20 MG TAB PO SCH (07:45)
[2016-09-10] MEDS: GLARGINE INSULIN (LANTUS) 100 UNITS/ML PEN SQ SCH ×2 (07:58→19:55)
--- NOTE | 2016-09-10 08:31 | GENMEDPROG ---
Chief Complaint: less sob feeling stronger Notes Reviewed: Yes Events from last night noted and discussed with Clinical Staff Current Medication List: Reviewed DVT Prophylaxis: Yes - Physical Examination Vital Signs and I&O: Last Vital Signs Temp 97.7 F 09/10/16 07:00 Pulse 79 09/10/16 07:00 Resp 10 09/10/16 04:00 BP 105/54 L 09/10/16 07:00 Pulse Ox 98 09/10/16 07:25 Oxygen Pulse Oxygen Saturation 98 O2 Device Nasal Cannula Oxygen Flow Rate 3 Fraction of Inspired Oxygen ( 40 FIO2) Intake & Output 09/07/16 09/08/16 09/09/16 09/10/16 23:59 23:59 23:59 23:59 Intake Total 350 1249 1792 301 Output Total 1200 875 425 150 Balance -926 645 5066 151 Patient's weight 74.797 kg 74.979 kg 78.562 kg General: Alert, Oriented x3, No acute distress, Well appearing, Well nourished HEENT: Normal (Normocephalic, atraumatic;EOMI.Sclera white, Nares patent, without discharge or bleeding. No oropharyngeal lesions or erythema. Mucous membranes are dry.) Neck: Non-tender, Full range of motion, Normal Trachea alignment, Normal inspection (No cervical lymphadenopathy. No supraclavicular lymphadenopathy.), No Masses palpable, Supple Lymphatics: Normal (No lymph node swelling or pain.) Respiratory: Accessory Muscle Use, Diminished, Tachypnea, Wheezes Cardiovascular: Regular rate and rhythm (No bradycardia or tachycardia), Normal S1, No Gallops,Rubs/Murmurs, Normal S2, Good Pedal Pulses (DP pulses 2+ bilaterally) GI: Normal bowel sounds Extremities/Musculoskeletal: Normal pulses (DP pulses 2+ bilaterally) Skin: Warm,Dry and Intact, No rashes, No significant lesion Neurological: Normal speech, Strength at 5/5 X4 ext, Normal tone, Cranial nerves 3-12 NL Psych/Mental Status: Appropriate, Normal Affect Lab/DI/Studies Reviewed: 09/10/16 05:35 09/10/16 05:35 Laboratory Results - last 24 hr 09/07/16 09/09/16 09/09/16 17:34 12:14 14:20 WBC RBC Hgb Hct MCV MCH MCHC RDW Plt Count MPV Neut % (Auto) Lymph % (Auto) [place] % (Auto) Eos % (Auto) Baso % (Auto) Absolute Neuts (auto) Absolute Lymphs (auto) Seg Neuts % (Manual) Band Neutrophils % Lymphocytes % (Manual) Monocytes % (Manual) Absolute Neutrophils Absolute Lymphocytes Platelet Estimate RBC Morphology Sodium Potassium Chloride Carbon Dioxide Anion Gap BUN Creatinine Estimated GFR (MDRD) Glucose POC Capillary Glucose 335 H 269 H Calculated Osmolality Calcium Corrected Calcium Total Bilirubin AST ALT Alkaline Phosphatase Total Protein Albumin Ur Random Microalbumin 634.8 09/09/16 09/09/16 09/09/16 15:15 16:29 18:45 WBC RBC Hgb Hct MCV MCH MCHC RDW Plt Count MPV Neut % (Auto) Lymph % (Auto) [place] % (Auto) Eos % (Auto) Baso % (Auto) Absolute Neuts (auto) Absolute Lymphs (auto) Seg Neuts % (Manual) Band Neutrophils % Lymphocytes % (Manual) Monocytes % (Manual) Absolute Neutrophils Absolute Lymphocytes Platelet Estimate RBC Morphology Sodium Potassium Chloride Carbon Dioxide Anion Gap BUN Creatinine Estimated GFR (MDRD) Glucose POC Capillary Glucose 249 H 207 H 235 H Calculated Osmolality Calcium Corrected Calcium Total Bilirubin AST ALT Alkaline Phosphatase Total Protein Albumin Ur Random Microalbumin 09/09/16 09/09/16 09/09/16 20:01 21:07 22:10 WBC RBC Hgb Hct MCV MCH MCHC RDW Plt Count MPV Neut % (Auto) Lymph % (Auto) [place] % (Auto) Eos % (Auto) Baso % (Auto) Absolute Neuts (auto) Absolute Lymphs (auto) Seg Neuts % (Manual) Band Neutrophils % Lymphocytes % (Manual) Monocytes % (Manual) Absolute Neutrophils Absolute Lymphocytes Platelet Estimate RBC Morphology Sodium Potassium Chloride Carbon Dioxide Anion Gap BUN Creatinine Estimated GFR (MDRD) Glucose POC Capillary Glucose 232 H 266 H 242 H Calculated Osmolality Calcium Corrected Calcium Total Bilirubin AST ALT Alkaline Phosphatase Total Protein Albumin Ur Random Microalbumin 09/09/16 09/10/16 09/10/16 23:10 00:54 02:55 WBC RBC Hgb Hct MCV MCH MCHC RDW Plt Count MPV Neut % (Auto) Lymph % (Auto) [place] % (Auto) Eos % (Auto) Baso % (Auto) Absolute Neuts (auto) Absolute Lymphs (auto) Seg Neuts % (Manual) Band Neutrophils % Lymphocytes % (Manual) Monocytes % (Manual) Absolute Neutrophils Absolute Lymphocytes Platelet Estimate RBC Morphology Sodium Potassium Chloride Carbon Dioxide Anion Gap BUN Creatinine Estimated GFR (MDRD) Glucose POC Capillary Glucose 274 H 261 H 242 H Calculated Osmolality Calcium Corrected Calcium Total Bilirubin AST ALT Alkaline Phosphatase Total Protein Albumin Ur Random Microalbumin 09/10/16 09/10/16 09/10/16 04:57 05:35 05:35 WBC 8.4 RBC 5.03 Hgb 13.7 D Hct 41.6 MCV 83 MCH 27.2 MCHC 32.8 L RDW 17.5 H Plt Count 161 MPV 8.5 Neut % (Auto) Cancelled Lymph % (Auto) Cancelled [place] % (Auto) Cancelled Eos % (Auto) Cancelled Baso % (Auto) Cancelled Absolute Neuts (auto) Cancelled Absolute Lymphs (auto) Cancelled Seg Neuts % (Manual) 88 H Band Neutrophils % 5 Lymphocytes % (Manual) 6 L Monocytes % (Manual) 1 Absolute Neutrophils 7.81 Absolute Lymphocytes 0.50 L Platelet Estimate Norm RBC Morphology 1+ aniso Sodium 132 L D Potassium 4.3 Chloride 99 Carbon Dioxide 20 L Anion Gap 17 H BUN 52 H Creatinine 1.30 H Estimated GFR (MDRD) 41 L Glucose 243 H POC Capillary Glucose 248 H Calculated Osmolality 277 Calcium 8.4 Corrected Calcium 9.6 Total Bilirubin 0.4 AST 38 H ALT 57 H Alkaline Phosphatase 101 Total Protein 5.5 L Albumin 2.8 L Ur Random Microalbumin 09/10/16 09/10/16 06:01 07:50 WBC RBC Hgb Hct MCV MCH MCHC RDW Plt Count MPV Neut % (Auto) Lymph % (Auto) [place] % (Auto) Eos % (Auto) Baso % (Auto) Absolute Neuts (auto) Absolute Lymphs (auto) Seg Neuts % (Manual) Band Neutrophils % Lymphocytes % (Manual) Monocytes % (Manual) Absolute Neutrophils Absolute Lymphocytes Platelet Estimate RBC Morphology Sodium Potassium Chloride Carbon Dioxide Anion Gap BUN Creatinine Estimated GFR (MDRD) Glucose POC Capillary Glucose 240 H 194 H Calculated Osmolality Calcium Corrected Calcium Total Bilirubin AST ALT Alkaline Phosphatase Total Protein Albumin Ur Random Microalbumin - Assessment (1) Respiratory failure with hypercapnia Acute J96.92 - RESPIRATORY FAILURE, UNSPECIFIED WITH HYPERCAPNIA Qualifiers: Chronicity: acute on chronic Qualified Code(s): J96.22 - Acute and chronic respiratory failure with hypercapnia Comment/Plan: Improving off bipap. Still mildly tachypneic this morning. (2) COPD with exacerbation Acute J44.1 - CHRONIC OBSTRUCTIVE PULMONARY DISEASE W (ACUTE) EXACERBATION Comment/Plan: Wean IV Solu-Medrol Rocephin Zithromax nebulizer therapy and intermittent BiPAP. 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 Hemoglobin A1c shows poor control the level 10.4. She is on sliding scale insulin q.a.c. and HS. urine microalbumin pending and will be given her diabetic diet when eating. Diabetic teaching has been ordered Q shift. (4) Hypothyroidism Chronic E03.9 - HYPOTHYROIDISM, UNSPECIFIED Qualifiers: Hypothyroidism type: acquired Qualified Code(s): E03.9 - Hypothyroidism, unspecified Comment/Plan: Continue home Synthroid, check tsh. Case Care Discussed with: Patient, Nursing Staff, Resource Management Education/Counseling Given To: Patient Education/Counseling Given Regarding: Diagnosis Total Time: 39 min Critical Care: No Code: 96652 (12+)
[2016-09-10] MEDS: FUROSEMIDE 40 MG TAB PO SCH ×2 (09:01→15:37)
[2016-09-10] MEDS: VITAMINS, MULTIPLE CAP PO SCH (12:33)
[2016-09-10] MEDS: PROBIOTIC BLEND TAB PO SCH ×2 (12:34→17:37)
[2016-09-10] MEDS: ENOXAPARIN 40 MG/0.4 ML PFS SQ SCH (17:38)
[2016-09-10] MEDS: CEFTRIAXONE 1 GM in D5W 100 ML IV SCH (19:54)
[2016-09-10] MEDS: METHYLPREDNISOLONE 40 MG/1 ML VIAL IV SCH (19:55)
[2016-09-10] MEDS: CHLORHEXIDINE (HIBICLENS) 4 OZ BOTTLE TOP SCH (21:14)
[2016-09-10] MEDS: AZITHROMYCIN 500 MG in D5W 250 ML IV SCH (21:24)
[2016-09-10] MEDS: METOPROLOL TARTRATE 25 MG TAB PO SCH (21:34)
[2016-09-11] MEDS: Albuterol/Ipratropium Neb 3 ML NEB NEB SCH ×4 (02:19→20:17)
[2016-09-11] MEDS: LEVOTHYROXINE 112 MCG (0.112 MG) TAB PO SCH (06:12)
[2016-09-11] MEDS: CYCLOBENZAPRINE 10 MG TAB PO SCH ×2 (06:12→13:01)
[2016-09-11] MEDS: MetFORMIN 1000 MG IMMED REL TAB PO SCH ×2 (06:12→16:50)
[2016-09-11] MEDS: REGULAR INSULIN 100 UNITS/ML - 3 ML VIAL SQ SCH ×4 (06:12→22:03)
[2016-09-11 07:32] LABS: MPV 8.8 fL (7.4-10.4)
--- NOTE | 2016-09-11 07:55 | GENMEDPROG ---
Chief Complaint: Patient sitting up in bed talking with me with in room. Nurse was concerned she had some confusion and mentioned her O2 sats were in the mid high 90s. I advised to get a set of blood gases and cut down the FiO2 to lower the FiO2 to keep the O2 sat greater 88%. Notes Reviewed: Yes Events from last night noted and discussed with Clinical Staff Current Medication List: Reviewed DVT Prophylaxis: Yes - Physical Examination Vital Signs and I&O: Last Vital Signs Temp 98 F 09/10/16 21:00 Pulse 68 09/11/16 05:49 Resp 18 09/11/16 05:49 BP 108/48 L 09/11/16 05:49 Pulse Ox 98 09/11/16 05:49 Oxygen Pulse Oxygen Saturation 98 O2 Device Nasal Cannula Oxygen Flow Rate 4 Fraction of Inspired Oxygen ( 40 FIO2) Intake & Output 09/08/16 09/09/16 09/10/16 09/11/16 23:59 23:59 23:59 23:59 Intake Total 1249 1792 1462 397 Output Total 875 425 650 Balance 374 1367 812 397 Patient's weight 74.797 kg 74.979 kg 79.549 kg 79.634 kg General: Alert, Oriented x3, No acute distress, Well appearing, Well nourished HEENT: Normal (Normocephalic, atraumatic;EOMI.Sclera white, Nares patent, without discharge or bleeding. No oropharyngeal lesions or erythema. Mucous membranes are dry.) Neck: Non-tender, Full range of motion, Normal Trachea alignment, Normal inspection (No cervical lymphadenopathy. No supraclavicular lymphadenopathy.), No Masses palpable, Supple Lymphatics: Normal (No lymph node swelling or pain.) Respiratory: Accessory Muscle Use, Diminished, Tachypnea, Wheezes Cardiovascular: Regular rate and rhythm (No bradycardia or tachycardia), Normal S1, No Gallops,Rubs/Murmurs, Normal S2, Good Pedal Pulses (DP pulses 2+ bilaterally) GI: Normal bowel sounds Extremities/Musculoskeletal: Normal pulses (DP pulses 2+ bilaterally) Skin: Warm,Dry and Intact, No rashes, No significant lesion Neurological: Normal speech, Strength at 5/5 X4 ext, Normal tone, Cranial nerves 3-12 NL Psych/Mental Status: Appropriate, Normal Affect Lab/DI/Studies Reviewed: 09/11/16 06:30 09/11/16 06:30 Laboratory Results - last 24 hr 09/10/16 09/10/16 09/11/16 17:32 21:21 05:25 WBC RBC Hgb Hct MCV MCH MCHC RDW Plt Count MPV Neut % (Auto) Lymph % (Auto) [place] % (Auto) Eos % (Auto) Baso % (Auto) Absolute Neuts (auto) Absolute Lymphs (auto) Seg Neuts % (Manual) Band Neutrophils % Lymphocytes % (Manual) Monocytes % (Manual) Absolute Neutrophils Absolute Lymphocytes Platelet Estimate RBC Morphology Puncture Site pH pCO2 pO2 HCO3 Total CO2 Base Excess FiO2 % Specimen Drawn By Sodium Potassium Chloride Carbon Dioxide Anion Gap BUN Creatinine Estimated GFR (MDRD) Glucose POC Capillary Glucose 234 H 296 H 261 H Calculated Osmolality Calcium Corrected Calcium Total Bilirubin AST ALT Alkaline Phosphatase Total Protein Albumin 09/11/16 09/11/16 09/11/16 06:30 06:30 11:12 WBC 9.7 RBC 4.94 Hgb 13.3 Hct 40.4 MCV 82 MCH 27.0 MCHC 33.0 RDW 17.8 H Plt Count 156 MPV 8.8 Neut % (Auto) Cancelled Lymph % (Auto) Cancelled [place] % (Auto) Cancelled Eos % (Auto) Cancelled Baso % (Auto) Cancelled Absolute Neuts (auto) Cancelled Absolute Lymphs (auto) Cancelled Seg Neuts % (Manual) 94 H Band Neutrophils % 2 Lymphocytes % (Manual) 2 L Monocytes % (Manual) 2 Absolute Neutrophils 9.31 H Absolute Lymphocytes 0.19 L Platelet Estimate Norm RBC Morphology Reviewed this admiss Puncture Site pH pCO2 pO2 HCO3 Total CO2 Base Excess FiO2 % Specimen Drawn By Sodium 134 L Potassium 5.5 H D Chloride 101 Carbon Dioxide 22 Anion Gap 17 H BUN 64 H Creatinine 1.30 H Estimated GFR (MDRD) 41 L Glucose 219 H POC Capillary Glucose 178 H Calculated Osmolality 283 Calcium 8.3 L Corrected Calcium 9.4 Total Bilirubin 0.5 AST 26 ALT 50 Alkaline Phosphatase 98 Total Protein 5.8 L Albumin 2.9 L 09/11/16 13:45 WBC RBC Hgb Hct MCV MCH MCHC RDW Plt Count MPV Neut % (Auto) Lymph % (Auto) [place] % (Auto) Eos % (Auto) Baso % (Auto) Absolute Neuts (auto) Absolute Lymphs (auto) Seg Neuts % (Manual) Band Neutrophils % Lymphocytes % (Manual) Monocytes % (Manual) Absolute Neutrophils Absolute Lymphocytes Platelet Estimate RBC Morphology Puncture Site Right radial pH 7.280 L pCO2 47.0 H pO2 85.0 HCO3 22.1 Total CO2 23.5 Base Excess -4.8 L FiO2 % 4 lpm Specimen Drawn By Stana Sodium Potassium Chloride Carbon Dioxide Anion Gap BUN Creatinine Estimated GFR (MDRD) Glucose POC Capillary Glucose Calculated Osmolality Calcium Corrected Calcium Total Bilirubin AST ALT Alkaline Phosphatase Total Protein Albumin - Assessment (1) Respiratory failure with hypercapnia Acute J96.92 - RESPIRATORY FAILURE, UNSPECIFIED WITH HYPERCAPNIA Qualifiers: Chronicity: acute on chronic Qualified Code(s): J96.22 - Acute and chronic respiratory failure with hypercapnia Comment/Plan: Improving off bipap. Still mildly tachypneic this morning. (2) COPD with exacerbation Acute J44.1 - CHRONIC OBSTRUCTIVE PULMONARY DISEASE W (ACUTE) EXACERBATION Comment/Plan: Wean IV Solu-Medrol Rocephin Zithromax nebulizer therapy and intermittent BiPAP. (3) DMII (diabetes mellitus, type 2) Chronic E11.9 - TYPE 2 DIABETES MELLITUS WITHOUT COMPLICATIONS Qualifiers: Diabetes mellitus complication status: with kidney complications Diabetes mellitus complication detail: with chronic kidney disease Diabetes mellitus residential insulin use: with residential use Chronic kidney disease stage: stage 2 (mild) Qualified Code(s): E11.22 - Type 2 diabetes mellitus with diabetic chronic kidney disease; N18.2 - Chronic kidney disease, stage 2 (mild); Z79.4 - prison (current) use of insulin Comment/Plan: She is on metformin as well as scheduled insulin at home. Hemoglobin A1c shows poor control the level 10.4. She is on sliding scale insulin q.a.c. and HS. urine microalbumin pending and will be given her diabetic diet when eating. Diabetic teaching has been ordered Q shift. (4) Hypothyroidism Chronic E03.9 - HYPOTHYROIDISM, UNSPECIFIED Qualifiers: Hypothyroidism type: acquired Qualified Code(s): E03.9 - Hypothyroidism, unspecified Comment/Plan: Continue home Synthroid, check tsh. Case Care Discussed with: Patient, Nursing Staff Education/Counseling Given To: Patient Education/Counseling Given Regarding: Diagnosis Total Time: 37 min Critical Care: No Code: 70330 (12+)
[2016-09-11 08:12] LABS: BLOOD UREA NITROGEN 64 MG/DL (7-17); CALC CORRECTED 9.4 MG/DL (8.4-10.2); CALCIUM 8.3 MG/DL (8.4-10.2); CALCULATED OSMOLALITY 283 MOs/Kg (270-290); CHLORIDE 101 mEq/L (98-107); GLUCOSE 219 MG/DL (70-99); SODIUM LEVEL 134 mEq/L (137-146); TOTAL PROTEIN 5.8 G/DL (6.3-8.2)
[2016-09-11 08:14] LABS: SEG NEUTROPHIL 94 % (45-76)
[2016-09-11] MEDS: GLARGINE INSULIN (LANTUS) 100 UNITS/ML PEN SQ SCH ×2 (08:54→22:03)
[2016-09-11] MEDS: FUROSEMIDE 40 MG TAB PO SCH ×3 (08:55→17:37)
[2016-09-11] MEDS: NABUMETONE 500 MG TAB PO SCH (08:56)
[2016-09-11] MEDS: POTASSIUM CHLORIDE 20 MEQ TAB PO SCH (09:07)
[2016-09-11] MEDS: AMLODIPINE 5 MG TAB PO SCH (09:08)
[2016-09-11] MEDS: CETIRIZINE HCL 10 MG TAB PO SCH (09:08)
[2016-09-11] MEDS: MONTELUKAST SODIUM 10 MG TAB PO SCH (09:08)
[2016-09-11] MEDS: METOPROLOL TARTRATE 25 MG TAB PO SCH ×2 (09:08→17:37)
[2016-09-11] MEDS: ATORVASTATIN 20 MG TAB PO SCH (09:09)
[2016-09-11] MEDS: DULOXETINE 60 MG CAPSULE PO SCH (09:09)
[2016-09-11] MEDS: MORPHINE 30 MG IMMED REL TAB PO SCH ×3 (09:10→23:44)
[2016-09-11] MEDS: METHYLPREDNISOLONE 40 MG/1 ML VIAL IV SCH ×2 (09:10→21:51)
[2016-09-11] MEDS: PREGABALIN 50 MG CAP PO SCH ×3 (09:11→23:44)
[2016-09-11] MEDS: VITAMINS, MULTIPLE CAP PO SCH (13:01)
[2016-09-11] MEDS: PROBIOTIC BLEND TAB PO SCH ×2 (13:01→18:13)
[2016-09-11 13:53] LABS: ALLEN'S TEST PASS; BEb -4.8 (+/- 2); TCO2 23.5 MMOL/L (23-27)
[2016-09-11 13:57] LABS: ABG Draw Site Right Radial
[2016-09-11] MEDS: MORPHINE 2 MG/ML INJECTION IV PRN ×2 (17:30→23:56)
[2016-09-11] MEDS: ENOXAPARIN 40 MG/0.4 ML PFS SQ SCH (18:13)
[2016-09-11] MEDS: NUTRITIONAL SUPPLEMENT PO SCH (20:31)
[2016-09-11] MEDS: CHLORHEXIDINE (HIBICLENS) 4 OZ BOTTLE TOP SCH (20:31)
[2016-09-11] MEDS: CEFTRIAXONE 1 GM in D5W 100 ML IV SCH (21:51)
[2016-09-11] MEDS: AZITHROMYCIN 500 MG in D5W 250 ML IV SCH (23:42)
[2016-09-12] MEDS ORDERED: ACETAMINOPHEN 650 MG SUPP PR PRN (00:32)
--- NOTE | 2016-09-12 00:42 | GENMEDPROG ---
Chief Complaint: CRITICAL CARE NOTE 09/12/2016 0030 S: NURSE CALLED. PATIENT HAVING WORSENING SHORTNESS OF BREATH. WOKE UP BRIEFLY AND HAD RESPIRATORY RATE IN THE 50S. STILL WITH TACHYPNEA. ALTERED MENTAL STATUS RETURNED AFTER SHE WOKE UP. SHE DOES NOT RESPOND TO QUESTIONS. OBTUNDED. FEVER 103.5. Subjective Note: CRITICAL CARE NOTE 09/12/2016 0030 S: NURSE CALLED. PATIENT HAVING WORSENING SHORTNESS OF BREATH. WOKE UP BRIEFLY AND HAD RESPIRATORY RATE IN THE 50S. STILL WITH TACHYPNEA. ALTERED MENTAL STATUS RETURNED AFTER SHE WOKE UP. SHE DOES NOT RESPOND TO QUESTIONS. OBTUNDED. NOW WITH FEVER OF 103.5. ROS: ROS UNOBTAINABLE DUE TO PATIENT'S MEDICAL CONDITION; PATIENT IS OBTUNDED. Notes Reviewed: Yes Events from last night noted and discussed with Clinical Staff Current Medication List: Reviewed DVT Prophylaxis: Yes - Physical Examination Vital Signs and I&O: Last Vital Signs Temp 103.5 F H 09/12/16 00:21 Pulse 91 09/12/16 00:21 Resp 34 H 09/12/16 00:21 BP 136/70 09/12/16 00:21 Pulse Ox 89 L 09/12/16 00:21 Oxygen Pulse Oxygen Saturation 89 O2 Device BiPAP Oxygen Flow Rate 4 Fraction of Inspired Oxygen ( 55 FIO2) Intake & Output 09/09/16 09/10/16 09/11/16 09/12/16 05:59 05:59 05:59 05:59 Intake Total 1384 1225 1558 1073 Output Total 1000 588 559 3364 Balance 384 899 582 -7414 Patient's weight 74.979 kg 78.562 kg 79.634 kg Vital Signs - 24 hr 09/11/16 09/11/16 09/11/16 02:33 04:30 05:49 Temperature Pulse Rate 68 Respiratory 16 11 18 Rate Blood Pressure 108/48 L Pulse Oxygen 97 96 98 Saturation 09/11/16 09/11/16 09/11/16 08:00 09:36 14:33 Temperature 98.4 F 97.9 F Pulse Rate 72 90 Respiratory 22 20 20 Rate Blood Pressure 106/60 126/58 L Pulse Oxygen 97 97 97 Saturation 09/11/16 09/11/16 09/11/16 16:22 17:04 17:10 Temperature 98.4 F Pulse Rate 112 106 106 Respiratory 44 H 21 Rate Blood Pressure 189/117 H 139/66 Pulse Oxygen 91 95 Saturation 09/11/16 09/11/16 09/11/16 17:30 17:50 19:00 Temperature Pulse Rate 87 80 Respiratory 24 Rate Blood Pressure Pulse Oxygen 89 L Saturation 09/11/16 09/11/16 09/11/16 20:09 20:20 20:22 Temperature 100.9 F H Pulse Rate 79 80 Respiratory 26 H 28 H 28 H Rate Blood Pressure 157/74 Pulse Oxygen 97 94 94 Saturation 09/11/16 09/11/16 09/12/16 21:00 23:40 00:00 Temperature Pulse Rate 83 96 Respiratory 26 H Rate Blood Pressure Pulse Oxygen 94 Saturation 09/12/16 00:21 Temperature 103.5 F H Pulse Rate 91 Respiratory 34 H Rate Blood Pressure 136/70 Pulse Oxygen 89 L Saturation General: Severe distress, Well nourished (obese), Other (Ill-appearing. In acute distress.) HEENT: Normal (Normocephalic, atraumatic.Sclera white. Pupils equal and round. Nares patent, without discharge or bleeding. No oropharyngeal lesions or erythema. Mucous membranes are dry.) Neck: Non-tender, Full range of motion, Normal Trachea alignment (Large neck circumference.), Normal inspection (No cervical lymphadenopathy. No supraclavicular lymphadenopathy.), No Masses palpable, Supple Lymphatics: Normal (No cervical lymphadenopathy. No supraclavicular lymphadenopathy.) Respiratory: Accessory Muscle Use, Rhonchi (bilateral rhonchi in all lung cuevas ), Tachypnea, Wheezes, Other (CTAB. Chest wall movements symmetric.) Cardiovascular: Normal S1, No Gallops,Rubs/Murmurs, Normal S2, PMI Not Lateralized, Chest Non Tender, Other (Mild tachycardia. DP and PT pulses slightly decreased at 1-2+). negative: Carotid Bruit GI: Normal bowel sounds, Soft, Non tender, No hepatospenomegaly, No masses, Obese Extremities/Musculoskeletal: Edema (trace lower extremity edema bilaterally), Other (DP and PT pulses slightly decreased at 1-2+). negative: Tenderness, Clubbing, Cyanosis Skin: No rashes, No significant lesion, Other (Warm, diaphoretic, and intact.) Neurological: Normal tone, Cranial nerves 3-12 NL (as best can be determined in this obtunded patient.), Reflexes 2+, Other (Babinski: toes downgoing bilaterally. Further neurologic exam could not be performed due to the medical condition of the patient.) Psych/Mental Status: Agitated, Lethargic (Not oriented. Eyes closed. Withdraws to stimuli. Not speaking. Not following commands.) Lab/DI/Studies Reviewed: Laboratory Results - last 24 hr 09/11/16 09/11/16 09/11/16 05:25 06:30 06:30 WBC 9.7 RBC 4.94 Hgb 13.3 Hct 40.4 MCV 82 MCH 27.0 MCHC 33.0 RDW 17.8 H Plt Count 156 MPV 8.8 Neut % (Auto) Cancelled Lymph % (Auto) Cancelled [place] % (Auto) Cancelled Eos % (Auto) Cancelled Baso % (Auto) Cancelled Absolute Neuts (auto) Cancelled Absolute Lymphs (auto) Cancelled Seg Neuts % (Manual) 94 H Band Neutrophils % 2 Lymphocytes % (Manual) 2 L Monocytes % (Manual) 2 Absolute Neutrophils 9.31 H Absolute Lymphocytes 0.19 L Platelet Estimate Norm RBC Morphology Reviewed this admiss Puncture Site pH pCO2 pO2 HCO3 Total CO2 Base Excess FiO2 % Specimen Drawn By Sodium 134 L Potassium 5.5 H D Chloride 101 Carbon Dioxide 22 Anion Gap 17 H BUN 64 H Creatinine 1.30 H Estimated GFR (MDRD) 41 L Glucose 219 H POC Capillary Glucose 261 H Calculated Osmolality 283 Calcium 8.3 L Corrected Calcium 9.4 Total Bilirubin 0.5 AST 26 ALT 50 Alkaline Phosphatase 98 Total Protein 5.8 L Albumin 2.9 L 09/11/16 09/11/16 09/11/16 11:12 13:45 16:33 WBC RBC Hgb Hct MCV MCH MCHC RDW Plt Count MPV Neut % (Auto) Lymph % (Auto) [place] % (Auto) Eos % (Auto) Baso % (Auto) Absolute Neuts (auto) Absolute Lymphs (auto) Seg Neuts % (Manual) Band Neutrophils % Lymphocytes % (Manual) Monocytes % (Manual) Absolute Neutrophils Absolute Lymphocytes Platelet Estimate RBC Morphology Puncture Site Right radial pH 7.280 L pCO2 47.0 H pO2 85.0 HCO3 22.1 Total CO2 23.5 Base Excess -4.8 L FiO2 % 4 lpm Specimen Drawn By Stana Sodium Potassium Chloride Carbon Dioxide Anion Gap BUN Creatinine Estimated GFR (MDRD) Glucose POC Capillary Glucose 178 H 111 H Calculated Osmolality Calcium Corrected Calcium Total Bilirubin AST ALT Alkaline Phosphatase Total Protein Albumin 09/11/16 09/11/16 21:56 23:58 WBC RBC Hgb Hct MCV MCH MCHC RDW Plt Count MPV Neut % (Auto) Lymph % (Auto) [place] % (Auto) Eos % (Auto) Baso % (Auto) Absolute Neuts (auto) Absolute Lymphs (auto) Seg Neuts % (Manual) Band Neutrophils % Lymphocytes % (Manual) Monocytes % (Manual) Absolute Neutrophils Absolute Lymphocytes Platelet Estimate RBC Morphology Puncture Site pH pCO2 pO2 HCO3 Total CO2 Base Excess FiO2 % Specimen Drawn By Sodium Potassium Chloride Carbon Dioxide Anion Gap BUN Creatinine Estimated GFR (MDRD) Glucose POC Capillary Glucose 65 L 74 Calculated Osmolality Calcium Corrected Calcium Total Bilirubin AST ALT Alkaline Phosphatase Total Protein Albumin EK09/07/16: 132 bpm. Sinus tachycardia with frequent PVCs. Nonspecific ST and T wave abnormality. Reivewed EKG personally. Chest x-ray, 09/07/16, viewed personally: EXAM: PORTABLE CHEST 1 VIEW COMPARISON: None. FINDINGS: Moderate cardiomegaly. Normal vascularity. Lungs are grossly clear. No pneumothorax. IMPRESSION: Cardiomegaly without decompensation. UPDATE: Chest x-ray, viewed personally: EXAM: PORTABLE CHEST 1 VIEW COMPARISON: 09/07/2016 FINDINGS: Since the prior study, airspace consolidation has developed in the upper lobes and in the lung bases, left greater than right. Cardiac silhouette is normal in size. No mediastinal or hilar masses. No convincing pleural effusion. No pneumothorax. IMPRESSION: 1. Worsening lung aeration with airspace consolidation in the upper and lower lobes, left greater than right. Findings are likely due to multifocal pneumonia. There is no convincing pulmonary edema. - Assessment (1) Acute and chronic respiratory failure with hypercapnia Acute J96.22 - ACUTE AND CHRONIC RESPIRATORY FAILURE WITH HYPERCAPNIA Comment/Plan: Patient has dyspnea and is not improving. Severe tachypnea. Patient's PCO2 is high, and her O2 sats peripherally are dropping. She is now requiring BiPAP. Plan: Place patient on oxygen by BiPAP and increase as needed. Monitor oxygen saturation levels and keep O2 sats greater than 89%. Stat CXR ordered. Stat D-dimer; if positive will order CTA chest. Consider transfer to ICU if no improvement. (2) Sepsis Acute A41.9 - SEPSIS, UNSPECIFIED ORGANISM Comment/Plan: Criteria: Fever > 103, pulse >100, resp rate >30. Source: pneumonia. Plan: Sepsis order set. Stat labs ordered: Metabolic panel, CBC, Lactic acid, other. Re-cultured. IV antibiotics: change to IV Imipenem and IV Levaquin to cover possible aspiration pneumonitis. IV fluids to provide volume. Monitor for signs of volume depletion, monitor blood pressure carefully. If still hypotensive with IV fluids consider pressors. Close monitoring. Telemetry. IVF: initial IVF 30 mL/kg x 1, then 250 mL/hr x 1 L, then maintenance IVF. (3) Aspiration pneumonitis Acute J69.0 - PNEUMONITIS DUE TO INHALATION OF FOOD AND VOMIT Comment/Plan: Severe rhonchi on exam bilaterally. Plan: Re-ordered cultures. IV antibiotics: change to IV Imipenem and IV Levaquin to cover possible aspiration pneumonitis. NPO until speech therapy evaluation. (4) Metabolic encephalopathy Acute G93.41 - METABOLIC ENCEPHALOPATHY Comment/Plan: Had altered mental status and metabolic encephalopathy on admission. 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 May be due to sepsis, hypoxia, hypercapnea, or combination of factors. Plan: Neuro checks. Head CT. Treat underlying causes. (5) COPD with exacerbation Acute J44.1 - CHRONIC OBSTRUCTIVE PULMONARY DISEASE W (ACUTE) EXACERBATION Comment/Plan: 09/11/16: Wean IV Solu-Medrol Rocephin Zithromax nebulizer therapy and intermittent BiPAP. UPDATE 09/12/16: Worsening respiratory status, now with multifocal pneumonia. Plan: Continue IV methylprednisolone. Continue scheduled and prn nebs. - Plan UPDATE: Additional Results: Laboratory Results - last 24 hr 09/11/16 09/11/16 09/11/16 13:45 16:33 21:56 WBC RBC Hgb Hct MCV MCH MCHC RDW Plt Count MPV Neut % (Auto) Lymph % (Auto) [place] % (Auto) Eos % (Auto) Baso % (Auto) Absolute Neuts (auto) Absolute Lymphs (auto) Seg Neuts % (Manual) Band Neutrophils % Lymphocytes % (Manual) Monocytes % (Manual) Absolute Neutrophils Absolute Lymphocytes Platelet Estimate RBC Morphology D-Dimer Quant (PE/DVT) Puncture Site Right radial pH 7.280 L pCO2 47.0 H pO2 85.0 HCO3 22.1 Total CO2 23.5 Base Excess -4.8 L FiO2 % 4 lpm Mode BiPAP Specimen Drawn By Stana Sodium Potassium Chloride Carbon Dioxide Anion Gap BUN Creatinine Estimated GFR (MDRD) Glucose POC Capillary Glucose 111 H 65 L Calculated Osmolality Lactic Acid Calcium Corrected Calcium Total Bilirubin AST ALT Alkaline Phosphatase Creatine Kinase Myoglobin Troponin I Total Protein Albumin Urine Color Urine Clarity Urine pH Ur Specific [place] Urine Protein Urine Glucose (UA) Urine Ketones Urine Occult Blood Urine Nitrite Urine Bilirubin Urine Urobilinogen Ur Leukocyte Esterase Urine RBC Urine WBC Ur Epithelial Cells Urine Bacteria Urine Mucus Urine Yeast 09/11/16 09/12/16 09/12/16 23:58 01:02 01:15 WBC RBC Hgb Hct MCV MCH MCHC RDW Plt Count MPV Neut % (Auto) Lymph % (Auto) [place] % (Auto) Eos % (Auto) Baso % (Auto) Absolute Neuts (auto) Absolute Lymphs (auto) Seg Neuts % (Manual) Band Neutrophils % Lymphocytes % (Manual) Monocytes % (Manual) Absolute Neutrophils Absolute Lymphocytes Platelet Estimate RBC Morphology D-Dimer Quant (PE/DVT) Puncture Site pH pCO2 pO2 HCO3 Total CO2 Base Excess FiO2 % Mode BiPAP Specimen Drawn By Sodium Potassium Chloride Carbon Dioxide Anion Gap BUN Creatinine Estimated GFR (MDRD) Glucose POC Capillary Glucose 74 Calculated Osmolality Lactic Acid 1.0 Calcium Corrected Calcium Total Bilirubin AST ALT Alkaline Phosphatase Creatine Kinase 109 Myoglobin 196.1 H Troponin I 0.02 Total Protein Albumin Urine Color Urine Clarity Urine pH Ur Specific [place] Urine Protein Urine Glucose (UA) Urine Ketones Urine Occult Blood Urine Nitrite Urine Bilirubin Urine Urobilinogen Ur Leukocyte Esterase Urine RBC Urine WBC Ur Epithelial Cells Urine Bacteria Urine Mucus Urine Yeast 09/12/16 09/12/16 09/12/16 01:15 01:15 01:15 WBC 5.1 RBC 5.16 Hgb 13.8 Hct 42.0 MCV 81 MCH 26.8 L MCHC 32.9 L RDW 17.9 H Plt Count 128 L MPV 8.8 Neut % (Auto) Lymph % (Auto) [place] % (Auto) Eos % (Auto) Baso % (Auto) Absolute Neuts (auto) Absolute Lymphs (auto) Seg Neuts % (Manual) Band Neutrophils % Lymphocytes % (Manual) Monocytes % (Manual) Absolute Neutrophils Absolute Lymphocytes Platelet Estimate RBC Morphology D-Dimer Quant (PE/DVT) 2553 H Puncture Site pH pCO2 pO2 HCO3 Total CO2 Base Excess FiO2 % Mode BiPAP Specimen Drawn By Sodium 138 Potassium 4.6 Chloride 105 Carbon Dioxide 25 Anion Gap 13 BUN 50 H Creatinine 1.00 Estimated GFR (MDRD) 56 L Glucose 84 POC Capillary Glucose Calculated Osmolality 278 Lactic Acid Calcium 7.9 L Corrected Calcium Total Bilirubin AST ALT Alkaline Phosphatase Creatine Kinase Myoglobin Troponin I Total Protein Albumin Urine Color Urine Clarity Urine pH Ur Specific [place] Urine Protein Urine Glucose (UA) Urine Ketones Urine Occult Blood Urine Nitrite Urine Bilirubin Urine Urobilinogen Ur Leukocyte Esterase Urine RBC Urine WBC Ur Epithelial Cells Urine Bacteria Urine Mucus Urine Yeast 09/12/16 09/12/16 09/12/16 01:35 04:10 04:10 WBC 5.2 RBC 4.60 Hgb 12.2 D Hct 37.4 MCV 81 MCH 26.5 L MCHC 32.6 L RDW 17.8 H Plt Count 115 L MPV 8.4 Neut % (Auto) Cancelled Lymph % (Auto) Cancelled [place] % (Auto) Cancelled Eos % (Auto) Cancelled Baso % (Auto) Cancelled Absolute Neuts (auto) Cancelled Absolute Lymphs (auto) Cancelled Seg Neuts % (Manual) 92 H Band Neutrophils % 0 Lymphocytes % (Manual) 8 L Monocytes % (Manual) Absolute Neutrophils 4.78 Absolute Lymphocytes 0.42 L Platelet Estimate Norm RBC Morphology Reviewed this admiss D-Dimer Quant (PE/DVT) Puncture Site pH pCO2 pO2 HCO3 Total CO2 Base Excess FiO2 % Mode BiPAP Specimen Drawn By Sodium 138 Potassium 4.5 Chloride 107 Carbon Dioxide 26 Anion Gap 10 BUN 46 H Creatinine 1.00 Estimated GFR (MDRD) 56 L Glucose 77 POC Capillary Glucose Calculated Osmolality 277 Lactic Acid Calcium 7.2 L Corrected Calcium Total Bilirubin AST ALT Alkaline Phosphatase Creatine Kinase Myoglobin Troponin I Total Protein Albumin Urine Color Yellow Urine Clarity Cldy Urine pH 6.0 Ur Specific [place] 1.005 Urine Protein 2+ H Urine Glucose (UA) Neg Urine Ketones Neg Urine Occult Blood 1+ H Urine Nitrite Neg Urine Bilirubin Neg Urine Urobilinogen <2.0 Ur Leukocyte Esterase Trace H Urine RBC 10-20 H Urine WBC 2-5 Ur Epithelial Cells Occ Urine Bacteria 2+ H Urine Mucus Occ Urine Yeast Mod H 09/12/16 09/12/16 09/12/16 04:10 04:23 06:35 WBC RBC Hgb Hct MCV MCH MCHC RDW Plt Count MPV Neut % (Auto) Lymph % (Auto) [place] % (Auto) Eos % (Auto) Baso % (Auto) Absolute Neuts (auto) Absolute Lymphs (auto) Seg Neuts % (Manual) Band Neutrophils % Lymphocytes % (Manual) Monocytes % (Manual) Absolute Neutrophils Absolute Lymphocytes Platelet Estimate RBC Morphology D-Dimer Quant (PE/DVT) Puncture Site Right radial pH 7.140 L* pCO2 62.0 H pO2 77.0 L HCO3 21.1 L Total CO2 23.0 Base Excess -8.7 L FiO2 % .70 Mode BiPAP 14/7 Specimen Drawn By Baras Sodium Potassium Chloride Carbon Dioxide Anion Gap BUN Creatinine Estimated GFR (MDRD) Glucose POC Capillary Glucose 77 Calculated Osmolality Lactic Acid Calcium Corrected Calcium Total Bilirubin AST ALT Alkaline Phosphatase Creatine Kinase 96 Myoglobin Troponin I 0.02 Total Protein Albumin Urine Color Urine Clarity Urine pH Ur Specific [place] Urine Protein Urine Glucose (UA) Urine Ketones Urine Occult Blood Urine Nitrite Urine Bilirubin Urine Urobilinogen Ur Leukocyte Esterase Urine RBC Urine WBC Ur Epithelial Cells Urine Bacteria Urine Mucus Urine Yeast Head CT: EXAM: CT HEAD WITHOUT CONTRAST TECHNIQUE: Contiguous axial images were obtained from the base of the skull through the vertex without intravenous contrast. COMPARISON: None. FINDINGS: There is no evidence of acute infarction, mass lesion, or intra- or extra-axial hemorrhage on CT. The posterior fossa, including the cerebellum, brainstem and fourth ventricle, is within normal limits. The third and lateral ventricles, and basal ganglia are unremarkable in appearance. The cerebral hemispheres are symmetric in appearance, with normal angel-white differentiation. No mass effect or midline shift is seen. There is no evidence of fracture; visualized osseous structures are unremarkable in appearance. The orbits are within normal limits. There is opacification of the right mastoid air cells, and near complete opacification of the sphenoid sinus, with mucoperiosteal thickening. The remaining paranasal sinuses and left mastoid air cells are well-aerated. No significant soft tissue abnormalities are seen. IMPRESSION: 1. No acute intracranial pathology seen on CT. 2. Opacification of the right mastoid air cells, and near complete opacification of the sphenoid sinus, with mucoperiosteal thickening. CTA Chest: EXAM: CT ANGIOGRAPHY CHEST WITH CONTRAST TECHNIQUE: Multidetector CT imaging of the chest was performed using the standard protocol during bolus administration of intravenous contrast. Multiplanar CT image reconstructions and MIPs were obtained to evaluate the vascular anatomy. CONTRAST: 90 mL of Isovue 370 IV contrast COMPARISON: Chest radiograph performed earlier today at 12:49 a.m. FINDINGS: There is no evidence of pulmonary embolus. Evaluation for pulmonary embolus is suboptimal in areas of airspace consolidation. Diffuse bilateral airspace opacification is noted within both lungs, most prominent at the upper lung lobes, compatible with multifocal pneumonia. There is no evidence of pleural effusion or pneumothorax. No masses are identified; no abnormal focal contrast enhancement is seen. Enlarged subcarinal and paratracheal nodes are seen, measuring up to 1.4 cm in short axis, likely reflecting the acute infection. No pericardial effusion is identified. The great vessels are grossly unremarkable in appearance. No axillary lymphadenopathy is seen. The thyroid gland is diminutive and grossly unremarkable in appearance. The visualized portions of the liver and spleen are unremarkable. No acute osseous abnormalities are seen. Review of the MIP images confirms the above findings. IMPRESSION: 1. No evidence of pulmonary embolus. 2. Diffuse bilateral pneumonia, most prominent at the upper lung lobes. 3. Enlarged mediastinal nodes, measuring up to 1.4 cm in short axis, likely reflect the acute infection. ADDITIONAL UPDATE: S: Called this morning around 0630: patient had pulled her mask off and was found cyanotic. She did wake up and was having severe tachypnea again. BiPAP placed on patient. O: Vital Signs 09/11/16 09/12/16 09/12/16 23:40 00:00 00:21 Temperature 103.5 F H Pulse Rate 96 91 Respiratory 26 H 34 H Rate Blood Pressure 136/70 Pulse Oxygen 94 89 L Saturation 09/12/16 09/12/16 09/12/16 01:38 03:00 04:16 Temperature 100.1 F 98.8 F Pulse Rate 81 81 Respiratory 20 Rate Blood Pressure 103/48 L Pulse Oxygen 93 Saturation 09/12/16 09/12/16 09/12/16 04:29 05:00 06:08 Temperature Pulse Rate 81 86 Respiratory 21 Rate Blood Pressure Pulse Oxygen 92 Saturation 09/12/16 09/12/16 09/12/16 06:20 06:55 07:00 Temperature Pulse Rate 110 101 99 Respiratory 42 H Rate Blood Pressure 141/99 Pulse Oxygen 75 L 92 Saturation Physical Exam: GENERAL: Ill-appearing, obese, in acute distress. HEENT: Normocephalic, atraumatic; pupils equal and round. Nares patent, without discharge or bleeding. No oropharyngeal lesions or erythema. Mucous membranes are dry. NECK: is supple, no masses, trachea midline. RESPIRATORY: Clear to auscultation bilaterally. Chest wall movements are symmetric. Tachypnea and use of accessory muscles to breathe. Bilateral rhonchi. CARDIOVASCULAR: Normal S1, S2. No murmurs, rubs, or gallops. PMI non-displaced. Carotids: no carotid bruits. Mild tachycardia. DP pulses 2+ bilaterally. GI: soft, nontender, non-distended, normal active bowel sounds. No hepatosplenomegaly. INTEGUMENT: Clean, dry, and intact. No rashes. No lesions. MUSCULOSKELETAL: Moving all extremities. No cyanosis. No clubbing. Edema: trace lower extremity edema bilaterally. NEUROLOGICAL: Cranial nerves 2-12 grossly intact. Reflexes: 2+ bilaterally. Babinski: toes downgoing bilaterally. Further neurologic exam could not be performed due to the patient's medical condition. PSYCHIATRIC: Oriented to person. Able to answer a few yes/no questions with a nod. Anxious affect. Intermittent somnolence. LYMPHATIC: No cervical lymphadenopathy. No supraclavicular lymphadenopathy. A/P: 1. Acute on chronic respiratory failure with hypercapnea. ABG repeated and acidosis worse. Patient was found cyanotic after pulling off her BiPAP. Plan: Move to ICU. Re-checked on patient after move to ICU: she is now improving somewhat. Recheck ABG. 2. Metabolic encephalopathy. NPO until speech therapy eval. 3. Aspiration pneumonitis. Multifocal pneumonia. IV imipenem and levaquin. 4. COPD exacerbation. Continue steroids. In summary, this patient is acutely and critically ill. The patient requires treatment of vital organ failure and measures to prevent further life- threatening deterioration of condition. I have spent 75 min in the critical care of this patient. Case Care Discussed with: Patient, Nursing Staff, Respiratory Therapy Total Time: 75 min. Critical Care: Yes Code: 291 - Focused CV Perfusion Exam Date exam occurred: 09/12/16 Time of Exam: 01:00 Vital Signs: Last Vital Signs See Vitals section and Plan Section. Respiratory: Lungs clear, Respiratory distress, Accessory muscle use, Rhonchi Cardiovascular/Chest: Normal (Normal S1, S2), Tachycardia Capillary Refill: Immediate Peripheral pulses: Diminished: Dorsalis pedis (R), Dorsalis pedis (L), Posterior tibialis (R), Posterior tibialis (L), Full: Radial (R), Radial (L) Skin Color: Flushed (in face). negative: Pale, Dusky, Mottled Skin Turgor: <3 Seconds
[2016-09-12] MEDS: MORPHINE 30 MG IMMED REL TAB PO SCH ×3 (00:59→20:30)
[2016-09-12] MEDS: PREGABALIN 50 MG CAP PO SCH ×3 (00:59→20:28)
--- NOTE | 2016-09-12 01:02 | DIRPT ---
CLINICAL DATA: Respiratory failure. Worsening tachypneic. EXAM: PORTABLE CHEST 1 VIEW COMPARISON: 09/07/2016 FINDINGS: Since the prior study, airspace consolidation has developed in the upper lobes and in the lung bases, left greater than right. Cardiac silhouette is normal in size. No mediastinal or hilar masses. No convincing pleural effusion. No pneumothorax. IMPRESSION: 1. Worsening lung aeration with airspace consolidation in the upper and lower lobes, left greater than right. Findings are likely due to multifocal pneumonia. There is no convincing pulmonary edema. Electronically Signed By: Terell Gray M.D. On: 09/12/2016 00:59
[2016-09-12] MEDS ORDERED: NS 1,000 ML IV ONE ×2 (01:05→03:07)
[2016-09-12] MEDS: 1/2NS 1,000 ML IV SCH (01:09)
[2016-09-12 01:38] LABS: MPV 8.8 fL (7.4-10.4)
[2016-09-12] MEDS: Albuterol/Ipratropium Neb 3 ML NEB NEB SCH ×4 (01:42→20:55)
[2016-09-12 02:00] LABS: LEUKOCYTES/URINE TRACE (NEGATIVE); NITRITE/URINE NEG (NEGATIVE); URINE OCCULT BLOOD 1+ (NEG/TRACE)
[2016-09-12 02:00] LABS: BLOOD UREA NITROGEN 50 MG/DL (7-17); CALCIUM 7.9 MG/DL (8.4-10.2); CALCULATED OSMOLALITY 278 MOs/Kg (270-290); CHLORIDE 105 mEq/L (98-107); GLUCOSE 84 MG/DL (70-99); SODIUM LEVEL 138 mEq/L (137-146)
[2016-09-12] MEDS ORDERED: Pharmacy Order Set Alert SCH (02:00)
[2016-09-12] MEDS ORDERED: IMIPENEM CILASTATIN 250 MG in D5W 100 ML IV SCH (02:00)
[2016-09-12] MEDS: Levofloxacin 750 mg/150 ml D5W 750 MG/150 ML RTU IV SCH ×2 (02:12→02:14)
[2016-09-12] MEDS ORDERED: Pharmacy Review for Metformin - IV Contrast Given SCH (03:00)
--- NOTE | 2016-09-12 03:38 | DIRPT ---
CLINICAL DATA: Acute onset of altered mental status. Confusion and lethargy. Fever. Initial encounter. EXAM: CT HEAD WITHOUT CONTRAST TECHNIQUE: Contiguous axial images were obtained from the base of the skull through the vertex without intravenous contrast. COMPARISON: None. FINDINGS: There is no evidence of acute infarction, mass lesion, or intra- or extra-axial hemorrhage on CT. The posterior fossa, including the cerebellum, brainstem and fourth ventricle, is within normal limits. The third and lateral ventricles, and basal ganglia are unremarkable in appearance. The cerebral hemispheres are symmetric in appearance, with normal angel-white differentiation. No mass effect or midline shift is seen. There is no evidence of fracture; visualized osseous structures are unremarkable in appearance. The orbits are within normal limits. There is opacification of the right mastoid air cells, and near complete opacification of the sphenoid sinus, with mucoperiosteal thickening. The remaining paranasal sinuses and left mastoid air cells are well-aerated. No significant soft tissue abnormalities are seen. IMPRESSION: 1. No acute intracranial pathology seen on CT. 2. Opacification of the right mastoid air cells, and near complete opacification of the sphenoid sinus, with mucoperiosteal thickening. Electronically Signed By: Fermín Crespo M.D. On: 09/12/2016 03:35
--- NOTE | 2016-09-12 03:41 | DIRPT ---
CLINICAL DATA: Acute onset of respiratory distress. Shortness of breath and fever. Elevated D-dimer. Initial encounter. EXAM: CT ANGIOGRAPHY CHEST WITH CONTRAST TECHNIQUE: Multidetector CT imaging of the chest was performed using the standard protocol during bolus administration of intravenous contrast. Multiplanar CT image reconstructions and MIPs were obtained to evaluate the vascular anatomy. CONTRAST: 90 mL of Isovue 370 IV contrast COMPARISON: Chest radiograph performed earlier today at 12:49 a.m. FINDINGS: There is no evidence of pulmonary embolus. Evaluation for pulmonary embolus is suboptimal in areas of airspace consolidation. Diffuse bilateral airspace opacification is noted within both lungs, most prominent at the upper lung lobes, compatible with multifocal pneumonia. There is no evidence of pleural effusion or pneumothorax. No masses are identified; no abnormal focal contrast enhancement is seen. Enlarged subcarinal and paratracheal nodes are seen, measuring up to 1.4 cm in short axis, likely reflecting the acute infection. No pericardial effusion is identified. The great vessels are grossly unremarkable in appearance. No axillary lymphadenopathy is seen. The thyroid gland is diminutive and grossly unremarkable in appearance. The visualized portions of the liver and spleen are unremarkable. No acute osseous abnormalities are seen. Review of the MIP images confirms the above findings. IMPRESSION: 1. No evidence of pulmonary embolus. 2. Diffuse bilateral pneumonia, most prominent at the upper lung lobes. 3. Enlarged mediastinal nodes, measuring up to 1.4 cm in short axis, likely reflect the acute infection. Electronically Signed By: Fermín Crespo M.D. On: 09/12/2016 03:39
[2016-09-12 04:16] VITALS: BMI 33.7
[2016-09-12 04:19] LABS: MPV 8.4 fL (7.4-10.4)
[2016-09-12 04:30] LABS: BLOOD UREA NITROGEN 46 MG/DL (7-17); CALCIUM 7.2 MG/DL (8.4-10.2); CALCULATED OSMOLALITY 277 MOs/Kg (270-290); CHLORIDE 107 mEq/L (98-107); GLUCOSE 77 MG/DL (70-99); SODIUM LEVEL 138 mEq/L (137-146)
[2016-09-12] MEDS: LEVOTHYROXINE 112 MCG (0.112 MG) TAB PO SCH (04:51)
[2016-09-12] MEDS: NS 1,000 ML IV SCH ×2 (04:51→15:32)
[2016-09-12] MEDS: REGULAR INSULIN 100 UNITS/ML - 3 ML VIAL SQ SCH ×4 (04:52→20:26)
[2016-09-12] MEDS ORDERED: Fluconazole 400 mg in NS 400 MG/200 ML RTU IV SCH (05:00)
[2016-09-12 05:08] LABS: SEG NEUTROPHIL 92 % (45-76)
[2016-09-12 06:40] LABS: ALLEN'S TEST PASS; BEb -8.7 (+/- 2)
[2016-09-12 06:41] LABS: ABG Draw Site Right Radial; BI-PAP 14/7 cm H2O
[2016-09-12] MEDS: MORPHINE 2 MG/ML INJECTION IV PRN (06:53)
[2016-09-12] MEDS: GLARGINE INSULIN (LANTUS) 100 UNITS/ML PEN SQ SCH ×2 (07:20→20:21)
[2016-09-12] MEDS: NUTRITIONAL SUPPLEMENT PO SCH ×3 (07:23→20:21)
[2016-09-12] MEDS: METHYLPREDNISOLONE 40 MG/1 ML VIAL IV SCH ×2 (07:25→20:22)
[2016-09-12] MEDS: NABUMETONE 500 MG TAB PO SCH (07:57)
[2016-09-12] MEDS: ATORVASTATIN 20 MG TAB PO SCH (07:57)
[2016-09-12] MEDS: FUROSEMIDE 40 MG TAB PO SCH ×2 (07:57→13:30)
[2016-09-12] MEDS: DULOXETINE 60 MG CAPSULE PO SCH (07:57)
[2016-09-12] MEDS: AMLODIPINE 5 MG TAB PO SCH (07:58)
[2016-09-12] MEDS: MONTELUKAST SODIUM 10 MG TAB PO SCH (07:58)
[2016-09-12] MEDS: CETIRIZINE HCL 10 MG TAB PO SCH (07:58)
[2016-09-12 08:47] LABS: CPK TOTAL WITH POSSIBLE MB 113 IU/L (30-134)
[2016-09-12] MEDS ORDERED: POTASSIUM CHLORIDE 20 MEQ TAB PO SCH (09:00)
[2016-09-12] MEDS: METOPROLOL 5 MG/5 ML SDV IV SCH ×3 (09:04→20:16)
[2016-09-12] MEDS: IMIPENEM CILASTATIN 500 MG in D5W 100 ML IV SCH ×2 (09:04→17:14)
--- NOTE | 2016-09-12 09:23 | GENMEDPROG ---
Chief Complaint: Difficult night. Transferred back to ICU. Restarted BIPAP. CT with bilateral pneumonia Notes Reviewed: Yes Events from last night noted and discussed with Clinical Staff Current Medication List: Reviewed Currently: Reports: Cough, Wheezing, TRISTAN, SOB. Denies: Nausea and Vomiting, Abdominal Pain, Chest Pain DVT Prophylaxis: Yes - Physical Examination Vital Signs and I&O: Last Vital Signs Temp 98.5 F 09/12/16 07:00 Pulse 90 09/12/16 09:00 Resp 30 H 09/12/16 08:00 BP 144/69 09/12/16 09:00 Pulse Ox 94 09/12/16 09:00 Oxygen Pulse Oxygen Saturation 94 O2 Device BiPAP Oxygen Flow Rate 4 Fraction of Inspired Oxygen ( 45 FIO2) Intake & Output 09/09/16 09/10/16 09/11/16 09/12/16 23:59 23:59 23:59 23:59 Intake Total 1792 1462 1470 2792 Output Total 608 031 9345 1250 Balance 1367 812 -780 1542 Patient's weight 74.979 kg 79.549 kg 79.634 kg 78.335 kg General: Severe distress, Well nourished (obese), Other (Ill-appearing. In acute distress.) HEENT: Normal (Normocephalic, atraumatic.Sclera white. Pupils equal and round. Nares patent, without discharge or bleeding. No oropharyngeal lesions or erythema. Mucous membranes are dry.), PERRLA, EOMI Neck: Non-tender, Full range of motion, Normal Trachea alignment (Large neck circumference.), Normal inspection (No cervical lymphadenopathy. No supraclavicular lymphadenopathy.), No Masses palpable, Supple Lymphatics: Normal (No cervical lymphadenopathy. No supraclavicular lymphadenopathy.) Respiratory: Accessory Muscle Use, Rhonchi (bilateral rhonchi in all lung cuevas ), Tachypnea, Wheezes, Other (CTAB. Chest wall movements symmetric.) Cardiovascular: Normal S1, No Gallops,Rubs/Murmurs, Normal S2, PMI Not Lateralized, Chest Non Tender, Other (Mild tachycardia. DP and PT pulses slightly decreased at 1-2+). negative: Carotid Bruit GI: Normal bowel sounds, Soft, Non tender, No hepatospenomegaly, No masses, Obese Extremities/Musculoskeletal: Edema (trace lower extremity edema bilaterally), Other (DP and PT pulses slightly decreased at 1-2+). negative: Tenderness, Clubbing, Cyanosis Skin: No rashes, No significant lesion, Other (Warm, diaphoretic, and intact.) Neurological: Normal tone, Cranial nerves 3-12 NL (as best can be determined in this obtunded patient.), Reflexes 2+, Other (Babinski: toes downgoing bilaterally. Further neurologic exam could not be performed due to the medical condition of the patient.) Psych/Mental Status: Agitated, Lethargic (Not oriented. Eyes closed. Withdraws to stimuli. Not speaking. Not following commands.) Lab/DI/Studies Reviewed: Laboratory Results - last 24 hr 09/11/16 09/11/16 09/11/16 16:33 21:56 23:58 WBC RBC Hgb Hct MCV MCH MCHC RDW Plt Count MPV Neut % (Auto) Lymph % (Auto) [place] % (Auto) Eos % (Auto) Baso % (Auto) Absolute Neuts (auto) Absolute Lymphs (auto) Seg Neuts % (Manual) Band Neutrophils % Lymphocytes % (Manual) Absolute Neutrophils Absolute Lymphocytes Platelet Estimate RBC Morphology D-Dimer Quant (PE/DVT) Puncture Site pH pCO2 pO2 HCO3 Total CO2 Base Excess FiO2 % Mode BiPAP Specimen Drawn By Sodium Potassium Chloride Carbon Dioxide Anion Gap BUN Creatinine Estimated GFR (MDRD) Glucose POC Capillary Glucose 111 H 65 L 74 Calculated Osmolality Lactic Acid Calcium Creatine Kinase Myoglobin Troponin I Urine Color Urine Clarity Urine pH Ur Specific [place] Urine Protein Urine Glucose (UA) Urine Ketones Urine Occult Blood Urine Nitrite Urine Bilirubin Urine Urobilinogen Ur Leukocyte Esterase Urine RBC Urine WBC Ur Epithelial Cells Urine Bacteria Urine Mucus Urine Yeast 09/12/16 09/12/16 09/12/16 01:02 01:15 01:15 WBC RBC Hgb Hct MCV MCH MCHC RDW Plt Count MPV Neut % (Auto) Lymph % (Auto) [place] % (Auto) Eos % (Auto) Baso % (Auto) Absolute Neuts (auto) Absolute Lymphs (auto) Seg Neuts % (Manual) Band Neutrophils % Lymphocytes % (Manual) Absolute Neutrophils Absolute Lymphocytes Platelet Estimate RBC Morphology D-Dimer Quant (PE/DVT) 2553 H Puncture Site pH pCO2 pO2 HCO3 Total CO2 Base Excess FiO2 % Mode BiPAP Specimen Drawn By Sodium Potassium Chloride Carbon Dioxide Anion Gap BUN Creatinine Estimated GFR (MDRD) Glucose POC Capillary Glucose Calculated Osmolality Lactic Acid 1.0 Calcium Creatine Kinase 109 Myoglobin 196.1 H Troponin I 0.02 Urine Color Urine Clarity Urine pH Ur Specific [place] Urine Protein Urine Glucose (UA) Urine Ketones Urine Occult Blood Urine Nitrite Urine Bilirubin Urine Urobilinogen Ur Leukocyte Esterase Urine RBC Urine WBC Ur Epithelial Cells Urine Bacteria Urine Mucus Urine Yeast 09/12/16 09/12/16 09/12/16 01:15 01:15 01:35 WBC 5.1 RBC 5.16 Hgb 13.8 Hct 42.0 MCV 81 MCH 26.8 L MCHC 32.9 L RDW 17.9 H Plt Count 128 L MPV 8.8 Neut % (Auto) Lymph % (Auto) [place] % (Auto) Eos % (Auto) Baso % (Auto) Absolute Neuts (auto) Absolute Lymphs (auto) Seg Neuts % (Manual) Band Neutrophils % Lymphocytes % (Manual) Absolute Neutrophils Absolute Lymphocytes Platelet Estimate RBC Morphology D-Dimer Quant (PE/DVT) Puncture Site pH pCO2 pO2 HCO3 Total CO2 Base Excess FiO2 % Mode BiPAP Specimen Drawn By Sodium 138 Potassium 4.6 Chloride 105 Carbon Dioxide 25 Anion Gap 13 BUN 50 H Creatinine 1.00 Estimated GFR (MDRD) 56 L Glucose 84 POC Capillary Glucose Calculated Osmolality 278 Lactic Acid Calcium 7.9 L Creatine Kinase Myoglobin Troponin I Urine Color Yellow Urine Clarity Cldy Urine pH 6.0 Ur Specific [place] 1.005 Urine Protein 2+ H Urine Glucose (UA) Neg Urine Ketones Neg Urine Occult Blood 1+ H Urine Nitrite Neg Urine Bilirubin Neg Urine Urobilinogen <2.0 Ur Leukocyte Esterase Trace H Urine RBC 10-20 H Urine WBC 2-5 Ur Epithelial Cells Occ Urine Bacteria 2+ H Urine Mucus Occ Urine Yeast Mod H 09/12/16 09/12/16 09/12/16 04:10 04:10 04:10 WBC 5.2 RBC 4.60 Hgb 12.2 D Hct 37.4 MCV 81 MCH 26.5 L MCHC 32.6 L RDW 17.8 H Plt Count 115 L MPV 8.4 Neut % (Auto) Cancelled Lymph % (Auto) Cancelled Woodruff % (Auto) Cancelled Eos % (Auto) Cancelled Baso % (Auto) Cancelled Absolute Neuts (auto) Cancelled Absolute Lymphs (auto) Cancelled Seg Neuts % (Manual) 92 H Band Neutrophils % 0 Lymphocytes % (Manual) 8 L Absolute Neutrophils 4.78 Absolute Lymphocytes 0.42 L Platelet Estimate Norm RBC Morphology Reviewed this admiss D-Dimer Quant (PE/DVT) Puncture Site pH pCO2 pO2 HCO3 Total CO2 Base Excess FiO2 % Mode BiPAP Specimen Drawn By Sodium 138 Potassium 4.5 Chloride 107 Carbon Dioxide 26 Anion Gap 10 BUN 46 H Creatinine 1.00 Estimated GFR (MDRD) 56 L Glucose 77 POC Capillary Glucose Calculated Osmolality 277 Lactic Acid Calcium 7.2 L Creatine Kinase 96 Myoglobin Troponin I 0.02 Urine Color Urine Clarity Urine pH Ur Specific [place] Urine Protein Urine Glucose (UA) Urine Ketones Urine Occult Blood Urine Nitrite Urine Bilirubin Urine Urobilinogen Ur Leukocyte Esterase Urine RBC Urine WBC Ur Epithelial Cells Urine Bacteria Urine Mucus Urine Yeast 09/12/16 09/12/16 09/12/16 04:23 06:35 07:46 WBC RBC Hgb Hct MCV MCH MCHC RDW Plt Count MPV Neut % (Auto) Lymph % (Auto) [place] % (Auto) Eos % (Auto) Baso % (Auto) Absolute Neuts (auto) Absolute Lymphs (auto) Seg Neuts % (Manual) Band Neutrophils % Lymphocytes % (Manual) Absolute Neutrophils Absolute Lymphocytes Platelet Estimate RBC Morphology D-Dimer Quant (PE/DVT) Puncture Site Right radial pH 7.140 L* pCO2 62.0 H pO2 77.0 L HCO3 21.1 L Total CO2 23.0 Base Excess -8.7 L FiO2 % .70 Mode BiPAP 14/7 Specimen Drawn By Baras Sodium Potassium Chloride Carbon Dioxide Anion Gap BUN Creatinine Estimated GFR (MDRD) Glucose POC Capillary Glucose 77 Calculated Osmolality Lactic Acid Calcium Creatine Kinase 113 Myoglobin Troponin I < 0.01 Urine Color Urine Clarity Urine pH Ur Specific [place] Urine Protein Urine Glucose (UA) Urine Ketones Urine Occult Blood Urine Nitrite Urine Bilirubin Urine Urobilinogen Ur Leukocyte Esterase Urine RBC Urine WBC Ur Epithelial Cells Urine Bacteria Urine Mucus Urine Yeast 09/12/16 09/12/16 09:35 12:04 WBC RBC Hgb Hct MCV MCH MCHC RDW Plt Count MPV Neut % (Auto) Lymph % (Auto) [place] % (Auto) Eos % (Auto) Baso % (Auto) Absolute Neuts (auto) Absolute Lymphs (auto) Seg Neuts % (Manual) Band Neutrophils % Lymphocytes % (Manual) Absolute Neutrophils Absolute Lymphocytes Platelet Estimate RBC Morphology D-Dimer Quant (PE/DVT) Puncture Site Left radial pH 7.320 L pCO2 46.0 H pO2 69.0 L HCO3 23.7 Total CO2 25.1 Base Excess -2.6 L FiO2 % 45% Mode BiPAP 15/7 Specimen Drawn By Stana Sodium Potassium Chloride Carbon Dioxide Anion Gap BUN Creatinine Estimated GFR (MDRD) Glucose POC Capillary Glucose 118 H Calculated Osmolality Lactic Acid Calcium Creatine Kinase Myoglobin Troponin I Urine Color Urine Clarity Urine pH Ur Specific [place] Urine Protein Urine Glucose (UA) Urine Ketones Urine Occult Blood Urine Nitrite Urine Bilirubin Urine Urobilinogen Ur Leukocyte Esterase Urine RBC Urine WBC Ur Epithelial Cells Urine Bacteria Urine Mucus Urine Yeast - Assessment (1) Respiratory failure with hypercapnia Acute J96.92 - RESPIRATORY FAILURE, UNSPECIFIED WITH HYPERCAPNIA Qualifiers: Chronicity: acute on chronic Qualified Code(s): J96.22 - Acute and chronic respiratory failure with hypercapnia Comment/Plan: Much worse overnight. Transferred back to the ICU and placed on BiPAP. Now with high fever and bilateral infiltrates on CT scan worrisome for aspiration. Started on IV imipenem and IV Levaquin. Continue BiPAP support, ICU care and pulmonary toilet. (2) Sepsis Acute A41.9 - SEPSIS, UNSPECIFIED ORGANISM Qualifiers: Sepsis type: sepsis due to unspecified organism Qualified Code(s): A41.9 - Sepsis, unspecified organism Comment/Plan: Fever of 103 overnight. Aggressively hydrating but will need to monitor respiratory status closely. IV antibiotics and pulmonary toilet. (3) Aspiration pneumonitis Acute J69.0 - PNEUMONITIS DUE TO INHALATION OF FOOD AND VOMIT Comment/Plan: Antibiotics changed as above. Continue BiPAP support, IV steroids and nebulizer treatments. (4) COPD with exacerbation Acute J44.1 - CHRONIC OBSTRUCTIVE PULMONARY DISEASE W (ACUTE) EXACERBATION Comment/Plan: IV steroids nebulizer treatments and BiPAP support (5) DMII (diabetes mellitus, type 2) Chronic E11.9 - TYPE 2 DIABETES MELLITUS WITHOUT COMPLICATIONS Qualifiers: Diabetes mellitus complication status: with kidney complications Diabetes mellitus complication detail: with chronic kidney disease Diabetes mellitus assisted insulin use: with terminal supervisor use Chronic kidney disease stage: stage 2 (mild) Qualified Code(s): E11.22 - Type 2 diabetes mellitus with diabetic chronic kidney disease; N18.2 - Chronic kidney disease, stage 2 (mild); Z79.4 - terminal supervisor (current) use of insulin Comment/Plan: Accu-Cheks and sliding scale insulin (6) Hypothyroidism Chronic E03.9 - HYPOTHYROIDISM, UNSPECIFIED Qualifiers: Hypothyroidism type: acquired Qualified Code(s): E03.9 - Hypothyroidism, unspecified Comment/Plan: Continue home Synthroid, check tsh. Case Care Discussed with: Patient Total Time: 1 hour 10 minutes Critical Care: Yes
[2016-09-12 09:45] LABS: ALLEN'S TEST PASS; BEb -2.6 (+/- 2)
[2016-09-12 09:48] LABS: ABG Draw Site Left Radial; TCO2 25.1 MMOL/L (23-27)
[2016-09-12 09:49] LABS: BI-PAP 15/7 cm H2O
[2016-09-12] MEDS: VITAMINS, MULTIPLE CAP PO SCH (11:18)
[2016-09-12] MEDS: PROBIOTIC BLEND TAB PO SCH ×2 (11:18→17:10)
--- NOTE | 2016-09-12 11:38 | CAPUEKG ---
[place], [place] Test Date: 2016-09-12 Pat Name: SILKE PETE Department: Room: 444 Gender: Female Eyelet Riveter: GORDY NINOB: Requested By: Order Number: Reading MD: Unruly Silverio Measurements Intervals [place] Rate: 87 P: 70 WA: 178 QRS: 26 QRSD: 84 T: 57 QT: 356 QTc: 428 Interpretive Statements Normal sinus rhythm Normal ECG Since prior tracing, PVCs no longer noted. Electronically Signed On 09-12-16 11:38:03 EST by Unruly Silverio [email or web address]> [id number]
[2016-09-12] MEDS: ENOXAPARIN 40 MG/0.4 ML PFS SQ SCH (17:14)
[2016-09-12] MEDS: CHLORHEXIDINE (HIBICLENS) 4 OZ BOTTLE TOP SCH (21:39)
[2016-09-13] MEDS: NS 1,000 ML IV SCH ×3 (00:28→19:42)
[2016-09-13] MEDS: IMIPENEM CILASTATIN 500 MG in D5W 100 ML IV SCH ×4 (00:31→19:43)
[2016-09-13] MEDS ORDERED: Levofloxacin 750 mg/150 ml D5W 750 MG/150 ML RTU IV SCH (02:00)
[2016-09-13] MEDS: Albuterol/Ipratropium Neb 3 ML NEB NEB SCH ×4 (02:05→21:27)
[2016-09-13] MEDS: METOPROLOL 5 MG/5 ML SDV IV SCH ×4 (02:38→19:45)
[2016-09-13] MEDS: MORPHINE 2 MG/ML INJECTION IV PRN (03:38)
[2016-09-13] MEDS ORDERED: MORPHINE 2 MG/ML INJECTION IV PRN (03:52)
[2016-09-13 04:47] LABS: ALLEN'S TEST PASS; BEb -0.7 (+/- 2); TCO2 24.5 MMOL/L (23-27)
[2016-09-13 04:55] LABS: ABG Draw Site Right Radial
[2016-09-13 04:56] LABS: BI-PAP 15/7 cm H2O
[2016-09-13] MEDS: LEVOTHYROXINE 112 MCG (0.112 MG) TAB PO SCH (05:15)
[2016-09-13 05:23] LABS: MPV 9.2 fL (7.4-10.4)
[2016-09-13 05:35] LABS: BLOOD UREA NITROGEN 27 MG/DL (7-17); CALC CORRECTED 9.4 MG/DL (8.4-10.2); CALCIUM 7.9 MG/DL (8.4-10.2); CALCULATED OSMOLALITY 287 MOs/Kg (270-290); CHLORIDE 113 mEq/L (98-107); GLUCOSE 218 MG/DL (70-99); SODIUM LEVEL 143 mEq/L (137-146); TOTAL PROTEIN 5.5 G/DL (6.3-8.2)
[2016-09-13 06:00] LABS: SEG NEUTROPHIL 85 % (45-76)
[2016-09-13] MEDS: LORAZEPAM 2 MG/ML VIAL IV PRN ×3 (06:00→19:05)
[2016-09-13] MEDS: REGULAR INSULIN 100 UNITS/ML - 3 ML VIAL SQ SCH ×4 (06:01→19:54)
[2016-09-13] MEDS: PREGABALIN 50 MG CAP PO SCH ×2 (07:41→19:49)
[2016-09-13] MEDS: NABUMETONE 500 MG TAB PO SCH (07:41)
[2016-09-13] MEDS: DULOXETINE 60 MG CAPSULE PO SCH (07:41)
[2016-09-13] MEDS: FUROSEMIDE 40 MG TAB PO SCH (07:41)
[2016-09-13] MEDS: ATORVASTATIN 20 MG TAB PO SCH (07:41)
[2016-09-13] MEDS: CETIRIZINE HCL 10 MG TAB PO SCH (07:42)
[2016-09-13] MEDS: MORPHINE 30 MG IMMED REL TAB PO SCH ×2 (07:42→19:49)
[2016-09-13] MEDS: AMLODIPINE 5 MG TAB PO SCH (07:42)
[2016-09-13] MEDS: MONTELUKAST SODIUM 10 MG TAB PO SCH (07:42)
[2016-09-13] MEDS: NUTRITIONAL SUPPLEMENT PO SCH ×3 (07:42→19:48)
[2016-09-13] MEDS: GLARGINE INSULIN (LANTUS) 100 UNITS/ML PEN SQ SCH ×2 (07:43→19:53)
--- NOTE | 2016-09-13 07:54 | DIRPT ---
CLINICAL DATA: Follow-up of pneumonia EXAM: PORTABLE CHEST 1 VIEW COMPARISON: Portable chest x-ray and chest CT scan of September 12, 2016 FINDINGS: The lungs are adequately inflated. Confluent alveolar opacities persist in the upper and lower lung zones bilaterally. These are slightly more conspicuous especially inferiorly today. The heart is normal in size. The pulmonary vascularity is prominent centrally but stable. There is no pleural effusion. The bony thorax exhibits no acute abnormality. IMPRESSION: Worsening of bilateral pneumonia. No pleural effusion or pulmonary edema is observed. Electronically Signed By: Terell Plasencia M.D. On: 09/13/2016 07:51
--- NOTE | 2016-09-13 08:06 | GENMEDPROG ---
Chief Complaint: Still hypoxic on Bipap. Chest xray worse. Still with significant increased work of breathing. verbally abusive to me. The 1st words he states to me are that he "hates this fucking place" and he is going to stop by the EMS facility on his way home and "kick their ass" for bringing her here. Offered transfer to other facility but he declined. Notes Reviewed: Yes Events from last night noted and discussed with Clinical Staff Current Medication List: Reviewed Currently: Reports: Cough, Wheezing, TRISTAN, SOB. Denies: Nausea and Vomiting, Abdominal Pain, Chest Pain DVT Prophylaxis: Yes - Physical Examination Vital Signs and I&O: Last Vital Signs Temp 98.4 F 09/13/16 07:00 Pulse 76 09/13/16 07:00 Resp 28 H 09/13/16 07:00 BP 157/72 09/13/16 07:00 Pulse Ox 93 09/13/16 07:00 Oxygen Pulse Oxygen Saturation 93 O2 Device BiPAP Oxygen Flow Rate 4 Fraction of Inspired Oxygen ( 40 FIO2) Intake & Output 09/10/16 09/11/16 09/12/16 09/13/16 23:59 23:59 23:59 23:59 Intake Total 1462 1470 4751 923 Output Total 650 2250 2600 600 Balance 812 -665 2151 323 Patient's weight 79.549 kg 79.634 kg 78.335 kg 78.335 kg General: Alert, Oriented x3, Severe distress, Well nourished (obese), Obese, Other (Ill-appearing. In acute distress.) HEENT: Normal (Normocephalic, atraumatic.Sclera white. Pupils equal and round. Nares patent, without discharge or bleeding. No oropharyngeal lesions or erythema. Mucous membranes are dry.), PERRLA, EOMI Neck: Non-tender, Full range of motion, Normal Trachea alignment (Large neck circumference.), Normal inspection (No cervical lymphadenopathy. No supraclavicular lymphadenopathy.), No Masses palpable, Supple Lymphatics: Normal (No cervical lymphadenopathy. No supraclavicular lymphadenopathy.) Respiratory: Accessory Muscle Use, Rhonchi (bilateral rhonchi in all lung cuevas ), Tachypnea, Wheezes, Other (CTAB. Chest wall movements symmetric.) Cardiovascular: Normal S1, No Gallops,Rubs/Murmurs, Normal S2, PMI Not Lateralized, Chest Non Tender, Other (Mild tachycardia. DP and PT pulses slightly decreased at 1-2+). negative: Carotid Bruit GI: Normal bowel sounds, Soft, Non tender, No hepatospenomegaly, No masses, Obese Extremities/Musculoskeletal: Edema (trace lower extremity edema bilaterally), Other (DP and PT pulses slightly decreased at 1-2+). negative: Tenderness, Clubbing, Cyanosis Skin: No rashes, No significant lesion, Other (Warm, diaphoretic, and intact.) Neurological: Normal tone, Cranial nerves 3-12 NL (as best can be determined in this obtunded patient.), Reflexes 2+, Other (Babinski: toes downgoing bilaterally. Further neurologic exam could not be performed due to the medical condition of the patient.) Psych/Mental Status: Agitated, Anxious Lab/DI/Studies Reviewed: Laboratory Results - last 24 hr 09/12/16 09/12/16 09/13/16 17:13 19:53 04:40 WBC RBC Hgb Hct MCV MCH MCHC RDW Plt Count MPV Neut % (Auto) Lymph % (Auto) [place] % (Auto) Eos % (Auto) Baso % (Auto) Absolute Neuts (auto) Absolute Lymphs (auto) Seg Neuts % (Manual) Band Neutrophils % Lymphocytes % (Manual) Monocytes % (Manual) Absolute Neutrophils Absolute Lymphocytes Platelet Estimate RBC Morphology Puncture Site Right radial pH 7.420 pCO2 36.0 pO2 88.0 HCO3 23.4 Total CO2 24.5 Base Excess -0.7 FiO2 % .40 Mode BiPAP 15/7 Specimen Drawn By Baras Sodium Potassium Chloride Carbon Dioxide Anion Gap BUN Creatinine Estimated GFR (MDRD) Glucose POC Capillary Glucose 138 H 158 H Calculated Osmolality Calcium Corrected Calcium Total Bilirubin AST ALT Alkaline Phosphatase Total Protein Albumin 09/13/16 09/13/16 09/13/16 05:00 05:00 05:17 WBC 6.4 RBC 4.98 Hgb 13.3 Hct 40.9 MCV 82 MCH 26.8 L MCHC 32.6 L RDW 18.0 H Plt Count 159 MPV 9.2 Neut % (Auto) Cancelled Lymph % (Auto) Cancelled [place] % (Auto) Cancelled Eos % (Auto) Cancelled Baso % (Auto) Cancelled Absolute Neuts (auto) Cancelled Absolute Lymphs (auto) Cancelled Seg Neuts % (Manual) 85 H Band Neutrophils % 4 Lymphocytes % (Manual) 9 L Monocytes % (Manual) 2 Absolute Neutrophils 5.70 Absolute Lymphocytes 0.58 L Platelet Estimate Norm RBC Morphology Reviewed this admiss Puncture Site pH pCO2 pO2 HCO3 Total CO2 Base Excess FiO2 % Mode BiPAP Specimen Drawn By Sodium 143 Potassium 4.4 Chloride 113 H Carbon Dioxide 24 Anion Gap 10 BUN 27 H Creatinine 0.70 Estimated GFR (MDRD) > 60 Glucose 218 H POC Capillary Glucose 213 H Calculated Osmolality 287 Calcium 7.9 L Corrected Calcium 9.4 Total Bilirubin 0.5 AST 54 H ALT 56 H Alkaline Phosphatase 89 Total Protein 5.5 L Albumin 2.5 L 09/13/16 11:53 WBC RBC Hgb Hct MCV MCH MCHC RDW Plt Count MPV Neut % (Auto) Lymph % (Auto) [place] % (Auto) Eos % (Auto) Baso % (Auto) Absolute Neuts (auto) Absolute Lymphs (auto) Seg Neuts % (Manual) Band Neutrophils % Lymphocytes % (Manual) Monocytes % (Manual) Absolute Neutrophils Absolute Lymphocytes Platelet Estimate RBC Morphology Puncture Site pH pCO2 pO2 HCO3 Total CO2 Base Excess FiO2 % Mode BiPAP Specimen Drawn By Sodium Potassium Chloride Carbon Dioxide Anion Gap BUN Creatinine Estimated GFR (MDRD) Glucose POC Capillary Glucose 202 H Calculated Osmolality Calcium Corrected Calcium Total Bilirubin AST ALT Alkaline Phosphatase Total Protein Albumin - Assessment (1) Respiratory failure with hypercapnia Acute J96.92 - RESPIRATORY FAILURE, UNSPECIFIED WITH HYPERCAPNIA Qualifiers: Chronicity: acute on chronic Qualified Code(s): J96.22 - Acute and chronic respiratory failure with hypercapnia Comment/Plan: About the same today. Oxygenation improved on BiPAP but very anxious with increased work of breathing. is very angry and getting patient upset as well. Chronic pain issues, narcotic and anxiolytic medication dependence are also delaying recovery. These limit motivation and mobility. She has very poor functional reserve. I talked at length with patient and about the possibility of placing her on a ventilator if respiratory status does not improve or she appears to be fatiguing (2) Sepsis Acute A41.9 - SEPSIS, UNSPECIFIED ORGANISM Qualifiers: Sepsis type: sepsis due to unspecified organism Qualified Code(s): A41.9 - Sepsis, unspecified organism Comment/Plan: Fever curve is improving. Continue IV antibiotics and pulmonary toilet. Remains acutely and critically ill. (3) Aspiration pneumonitis Acute J69.0 - PNEUMONITIS DUE TO INHALATION OF FOOD AND VOMIT Comment/Plan: Antibiotics changed as above. Continue BiPAP support, IV steroids and nebulizer treatments. (4) COPD with exacerbation Acute J44.1 - CHRONIC OBSTRUCTIVE PULMONARY DISEASE W (ACUTE) EXACERBATION Comment/Plan: IV steroids nebulizer treatments and BiPAP support (5) DMII (diabetes mellitus, type 2) Chronic E11.9 - TYPE 2 DIABETES MELLITUS WITHOUT COMPLICATIONS Qualifiers: Diabetes mellitus complication status: with kidney complications Diabetes mellitus complication detail: with chronic kidney disease Diabetes mellitus skilled nursing insulin use: with skilled nursing use Chronic kidney disease stage: stage 2 (mild) Qualified Code(s): E11.22 - Type 2 diabetes mellitus with diabetic chronic kidney disease; N18.2 - Chronic kidney disease, stage 2 (mild); Z79.4 - alf (current) use of insulin Comment/Plan: Accu-Cheks and sliding scale insulin (6) Hypothyroidism Chronic E03.9 - HYPOTHYROIDISM, UNSPECIFIED Qualifiers: Hypothyroidism type: acquired Qualified Code(s): E03.9 - Hypothyroidism, unspecified Comment/Plan: Continue home Synthroid, check tsh. Case Care Discussed with: Patient, Family, Nursing Staff, Physical Therapy, Resource Management, Respiratory Therapy, Spray Drier Total Time: 1 hour 40 minutes-patient is acutely and critically ill. I did discuss at length with patient's spouse Critical Care: Yes
[2016-09-13] MEDS: METHYLPREDNISOLONE 40 MG/1 ML VIAL IV SCH ×2 (09:11→19:44)
[2016-09-13] MEDS: LABETALOL 20 MG/4 ML SYRINGE IV PRN ×3 (12:02→22:19)
[2016-09-13] MEDS: PROBIOTIC BLEND TAB PO SCH ×2 (13:15→17:12)
[2016-09-13] MEDS: VITAMINS, MULTIPLE CAP PO SCH (13:15)
[2016-09-13] MEDS: hydrALAZINE 20 MG/ML VIAL IV PRN ×4 (15:13→19:44)
[2016-09-13] MEDS ORDERED: FUROSEMIDE 40 MG/4 ML VIAL ONE (15:15)
[2016-09-13] MEDS ORDERED: FUROSEMIDE 40 MG/4 ML VIAL IV SCH (16:00)
[2016-09-13] MEDS: ENOXAPARIN 40 MG/0.4 ML PFS SQ SCH (17:12)
--- NOTE | 2016-09-13 17:59 | PCM.DCS92 ---
- Final/Secondary Discharge Diagnosis (1) Respiratory failure with hypercapnia Acute J96.92 - RESPIRATORY FAILURE, UNSPECIFIED WITH HYPERCAPNIA acute on chronic J96.22 - Acute and chronic respiratory failure with hypercapnia Comment: Very slow progress over the last week. Remains on BiPAP with increased work of breathing. However ABG within normal limits. was very upset earlier and verbally abusive. I offered patient transfer which he initially declined. However after some thought other family contacted me and were very kind and requested that we transfer her to [facility]. I discussed her case with Dr. Caballero at [facility] who kindly agreed to accept her in transfer. (2) Sepsis Acute A41.9 - SEPSIS, UNSPECIFIED ORGANISM Present on Admission: Yes sepsis due to unspecified organism A41.9 - Sepsis, unspecified organism Comment: High fever yesterday but curve is improving. Continue antibiotics and pulmonary toilet. Remains acutely and critically ill. (3) Aspiration pneumonitis Acute J69.0 - PNEUMONITIS DUE TO INHALATION OF FOOD AND VOMIT Present on Admission: Yes Comment: Currently on Primaxin, Levaquin and Diflucan. (4) COPD with exacerbation Acute J44.1 - CHRONIC OBSTRUCTIVE PULMONARY DISEASE W (ACUTE) EXACERBATION Present on Admission: Yes Comment: IV steroids nebulizer treatments and BiPAP support (5) DMII (diabetes mellitus, type 2) Chronic E11.9 - TYPE 2 DIABETES MELLITUS WITHOUT COMPLICATIONS Present on Admission: Yes with kidney complications with chronic kidney disease with skilled nursing use stage 2 (mild) E11.22 - Type 2 diabetes mellitus with diabetic chronic kidney disease; N18.2 - Chronic kidney disease, stage 2 (mild); Z79.4 - penitentiary (current) use of insulin Comment: Accu-Cheks and sliding scale insulin (6) Hypothyroidism Chronic E03.9 - HYPOTHYROIDISM, UNSPECIFIED acquired E03.9 - Hypothyroidism, unspecified Comment: Continue home Synthroid, check tsh. Discharge Disposition: Trans. to Other Hospital Discharge Condition: Serious Cognitive Discharge Status: Unimpaired Fuctional Discharge Status: Deconditioning Physician Follow up/Referrals: Paulina Mott MD [Primary Care Provider] - Listed Time O2 Device: BiPAP Diet at Discharge: Heart Healthy Activity: As Tolerated - DC Summary Notes Hospital Course Note:: Discharge summary on patient named SILKE PETE admitted to [facility] on 09/07/16 by Shalom Monet MD. Date of discharge is []. Ms. Pete is a 61-year-old white female with multiple chronic medical problems including diabetes, hypertension, COPD on home oxygen, and chronic pain. She was admitted to the hospital with respiratory distress and bilateral pneumonia. Apparently she become increasingly lethargic and confused at home. She was placed on BiPAP and admitted to the intensive care unit. She was started on IV antibiotics, nebulizer treatments and pulmonary toilet. She improved slowly over the course of her hospitalization and after 3 days in the ICU was transferred out to medical floor. Unfortunately within 24 hours she spiked a high fever and developed worsening respiratory distress and had to be transferred back to the intensive care unit. She had to be restarted on BiPAP. Over the last 24 hours oxygenation has improved. She initially when transferred back to the ICU was on 70% oxygen and this has been weaned down to 40%. However she continues to have significant increased work of breathing. Pneumonia shows persistent bilateral infiltrates. She currently is on IV Primaxin, Levaquin, and Diflucan. Her white blood cell count is normal and her hemoglobin is stable. Renal function is currently stable. This morning I discussed with her possible need to be placed on ventilator if she fatigued. All this afternoon I ran into her and discussed her case at length. He was verbally hostile swearing repeatedly about this hospital and her care. I offered transfer to an outside facility and he initially declined. Several hours later I was contacted by nursing who had spoken with several other family members who did request that we transfer her to [facility]. I discussed her case with Dr. Aragon at [facility] who kindly agreed to accept her in transfer. I discussed with family members present who very courteous and appreciate our efforts transferring. She remains acutely ill but is stable for transfer at this time. Total Time: 2 hours 30 minutes today - Physical Exam Vital Signs: Last Vital Signs Temp 99.4 F 09/13/16 14:00 Pulse 97 09/13/16 17:00 Resp 28 H 09/13/16 15:25 BP 185/88 H 09/13/16 17:00 Pulse Ox 93 09/13/16 17:00 Oxygen Pulse Oxygen Saturation 93 O2 Device BiPAP Oxygen Flow Rate 4 Fraction of Inspired Oxygen ( 40 FIO2) Constitutional: Alert, Distress, Restless. negative: Well nourished, Well appearing Oriented to: Person, Place - HEENT Head: Normal. negative: Deformity, Laceration Eye: Normal. negative: Conjunctival Injection, Pale Conjunctiva Oropharynx: Membranes Dry (TACKY) Nose: negative: Congestion, Discharge - Respiratory/Cardiovascular Respiratory: Accessory Muscle Use, Rhonchi (bilateral rhonchi in all lung cuevas ), Tachypnea, Wheezes, Other (CTAB. Chest wall movements symmetric.) Cardiovascular: Tachycardia - GI Auscultation: Normal Palpation: Normal (soft, non distended and nontender) Tenderness: Non tender - Musculoskeletal Back: Normal Extremities: Pedal Edema (2+ BILATERAL), Pedal Pulse (PALPABLE), Other (Obese) - Integumentary Skin: Normal, Warm Lymphatics: Normal (No cervical lymphadenopathy. No supraclavicular lymphadenopathy.). negative: Adenopathy - Neurologic Memory Impaired: Normal Motor Function: Normal Cranial Nerve: Normal Cerebellar: Normal Mood Description: Anxious, Agitated Thought: Coherent Perception: Normal
[2016-09-13] MEDS ORDERED: hydrALAZINE 20 MG/ML VIAL IV SCH (19:00)
[2016-09-13 21:19] VITALS: BP 182/78; PULSE 114; TEMP 97.4
[2016-09-13] MEDS: CHLORHEXIDINE (HIBICLENS) 4 OZ BOTTLE TOP SCH (21:53)
[2016-09-14] MEDS ORDERED: LEVOTHYROXINE 100 MCG (0.1 MG) SDV IV SCH (06:00)
[2016-09-14] MEDS ORDERED: SODIUM CHLORIDE 0.9% 10 ML VIAL IV SCH (06:00)
== END 2016-09-14 00:14 | disposition short-term general hospital (02) | DRG 871 ==
LOC: ED 16:46 → PCU 19:06 → ICU 21:43 → MPS3 09-10 20:26 → PCU 09-11 17:07 → ICU 09-12 06:59
PROVIDERS: ADMIT Internal Medicine; ATTEND Hospitalist
PROC: 039C3ZZ Drainage of Left Radial Artery, Percutaneous Approach (ICD-10-PCS; principal; 2016-09-07)
PROC: 5A09357 Assistance with Respiratory Ventilation, Less than 24 Consecutive Hours, Continuous Positive Airway Pressure (ICD-10-PCS; 2016-09-07)
DX: A41.9 Sepsis, unspecified organism (principal); J96.22 Acute and chronic respiratory failure with hypercapnia; J69.0 Pneumonitis due to inhalation of food and vomit; G93.41 Metabolic encephalopathy; J44.1 Chronic obstructive pulmonary disease with (acute) exacerbation; J44.0 Chronic obstructive pulmonary disease with (acute) lower respiratory infection; E11.22 Type 2 diabetes mellitus with diabetic chronic kidney disease; I12.9 Hypertensive chronic kidney disease with stage 1 through stage 4 chronic kidney disease, or unspecified chronic kidney disease; N18.2 Chronic kidney disease, stage 2 (mild); E03.9 Hypothyroidism, unspecified; Z79.4 Long term (current) use of insulin; Z99.81 Dependence on supplemental oxygen; F41.8 Other specified anxiety disorders; Z87.01 Personal history of pneumonia (recurrent); Z88.0 Allergy status to penicillin; Z88.2 Allergy status to sulfonamides; Z88.8 Allergy status to other drugs, medicaments and biological substances; Z79.899 Other long term (current) drug therapy; Z79.82 Long term (current) use of aspirin; I16.0 Hypertensive urgency
CPT/HCPCS: 36415; 36600; 70450; 71010; 71275; 80048; 80053; 81001; 82043; 82550; 82553; 82803; 82962; 83036; 83605; 83874; 83880; 84484; 85007; 85025; 85027; 85379; 85610; 85730; 87040; 87086; 87641; 90656; 93005; 94640; 94660; 96372; 96374; 96375; 96376; 98960; 99285; 99406; A9698; G0237; J0360; J0456; J0696; J0743; J1200; J1450; J1650; J1741; J1940; J1956; J2060; J2270; J2920; J2930; J3490; J7050; J7060; J7070; J7620